=== PATIENT | female | born 1965 | race Caucasian/White ===

== ENCOUNTER 2024-09-06 02:41 | Emergency (ER) | payer SELFPAY ==
--- NOTE | ~2024-09-06 | CT_ITS ---
CLINICAL HISTORY: Hypertension, left arm involuntary movement R O --- Additional Notes or Special Ins tructions: Mass effect, stroke CT head without contrast Comparison: None Findings: Scattered subcortical and periventricular hypoattenuation, likely in keeping with chronic small vessel ischemic disease. Parenchymal volume loss with compensatory prominence of the ventricles and CSF spaces. No acute territorial infarction, intracranial hemorrhage, midline shift or hydrocephalus. Empty sella is demonstrated, nonspecific. Lacunar infarcts in the right basal ganglia. The visualized paranasal sinuses and mastoid air cells are normal. The orbits are unremarkable. There is no acute fracture. IMPRESSION: 1. No acute intracranial hemorrhage or territorial infarction. If clinical concern persists consider follow-up MRI. 2. Additional findings as described. This document has been electronically signed by: Luciano Ellis MD on 09/06/2024 05:25:48
[2024-09-06 02:51] VITALS: BP 233/140; PULSE 113; RESP 18; TEMP 36.7; O2SAT 98; BMI 29.1
[2024-09-06 03:55] VITALS: BP 195/88; PULSE 102; RESP 20; O2SAT 97
[2024-09-06 03:55] LABS: Basophils Percent Auto 0.4 % (0-2); Eosinophils Absolute Auto 0.1 X10*3/uL (0.0-0.4); Eosinophils Percent Auto 1.1 % (0-4); Hematocrit 39.2 % (37.0-47.0); Hemoglobin 14.2 g/dl (12.0-16.0); Imm Gran Abs Auto 0.04 X10*3/uL (0.00-0.03); Imm Gran Pct Auto 0.4 % (0.0-0.4); Lymphocytes Absolute Auto 2.8 X10*3/uL (1.2-4.9); Lymphocytes Percent Auto 27.7 % (20-40); MANUAL DIFF FLAG NO; Mean Corpuscular HGB Conc 36.2 g/dl (31.0-35.0); Mean Corpuscular Hemoglobin 29.3 pg (27.0-33.0); Mean Platelet Volume 9.9 fL (9.4-12.3); Monocytes Absolute Auto 0.6 X10*3/uL (0.1-1.2); Monocytes Percent Auto 6.2 % (2-11); Neutrophils Absolute Auto 6.6 x10*3/uL (2.0-8.3); Neutrophils Percent Auto 64.2 % (45-73); Platelet Count 248 X10*3/uL (160-400); Red Blood Count 4.84 X10*6/uL (4.20-5.50); Red Cell Distribution Width 12.3 % (11.0-16.0); White Blood Count 10.2 X10*3/uL (4.8-10.8)
--- NOTE | 2024-09-06 04:05 | ED.GENADULT ---
HPI - General Adult General Chief complaint: General Medical Stated complaint: gen med Time Seen by Provider: 09/06/24 04:04 Source: patient and family (Son, Cesar) Mode of arrival: ambulatory Limitations: language barrier (Israeli speaking only, [facility] team coordinator used) History of Present Illness ED Provider: Dr. Kirk Seymour HPI narrative: 58-year-old female with no known past medical history, has not seen a physician in many years who presents emergency department for evaluation of involuntary movement of her left hand and left foot. Patient states that over the past 2 days she has noted involuntary twitching of her left hand and left foot which occur separately. The twitching will last 10-20 seconds and she has anywhere from 5-10 episodes a day. She denied headache, nausea, vomiting, change in her vision. She has noted increased frequency and increased thirst. She denied numbness, weakness, difficulty thinking or talking. She denied fever, chills, chest pain, shortness of breath. Related Data Previous Rx's ?Medication ?Instructions ?Recorded lisinopril 10 mg tablet 10 mg PO DAILY 90 days #90 tabs 09/06/24 metformin 500 mg tablet 500 mg PO BID 90 days #180 tabs 09/06/24 Allergies Allergy/AdvReac Type Severity Reaction Status Date / Time No Known Allergies Allergy Verified 09/06/24 02:55 Review of Systems Review of Systems: Yes all other systems are reviewed and are negative [facility] Past Medical History [facility] Narrative: Social history: She denies tobacco, alcohol and drug use Social History Social History Alcohol intake: never Smoked in Last 30 Days: No Use of substances other than those prescribed or required for medical reasons: No Advance Directives: No Advance Directives Information Provided: Yes Patient : No Physical Exam ED Vital Signs: Vital Signs - 24 hr 09/06/24 02:51 09/06/24 03:55 09/06/24 05:25 Temperature 98.1 F Pulse Rate 113 H 102 H 99 Respiratory Rate 18 20 14 Blood Pressure 233/140 H 195/88 H 206/110 H Pulse Oximetry 98 97 97 Oxygen Delivery Method Room Air Room Air Room Air 09/06/24 06:12 Temperature 98.0 F Pulse Rate 98 Respiratory Rate 14 Blood Pressure 215/111 H Pulse Oximetry 97 Oxygen Delivery Method Room Air BMI result Body Mass Index 29.1 Vital signs revealed elevated blood pressures of 233/140 and 195/88 Exam: General: Awake, alert in no distress Head: Normocephalic, atraumatic EENT: PERRL, Lids normal, sclera normal, conjunctiva normal, nose normal , ears normal, throat without erythema or exudates Neck: Supple, no adenopathy Lung: breath sounds symmetric, no wheezing, rales or rhonchi Chest: symmetric movement, nontender Heart: regular rate and rhythm, normal S1, S2 no murmurs or rubs Abdomen: soft, non-tender, nondistended, normal bowel sounds Back: no vertebral tenderness, no CVAT Extremities: no deformities, moves all extremities symmetrically Neuro: General: Awake, alert, oriented, normal speech Cranial nerves: Cranial nerves intact Strength: moves all extremities symmetrically, strength 5/5 symmetrically, no tremors noted Cerebellar: Good ztqitl-vz-qjwc-to-finger, good heel to dyson, good rapid finger movement Psych: Pleasant, cooperative Medications Administered Discontinued Medications Generic Name Dose Route Start Last Admin Trade Name Freq PRN Reason Stop Dose Admin Sodium Chloride 1,000 mls @ 999 mls/hr 09/06/24 04:33 09/06/24 04:45 Ns IV 09/06/24 05:33 999 mls/hr .Q1H1M STA Administration Lisinopril 10 mg 09/06/24 04:33 09/06/24 04:41 Lisinopril 10 Mg Tablet PO 09/06/24 04:34 10 mg ONCE ONE Administration Protocol Metformin HCl 500 mg 09/06/24 04:33 09/06/24 04:41 Metformin Hcl 500 Mg Tablet PO 09/06/24 04:34 500 mg ONCE ONE Administration Medical Decision Making Medical Decision Making [facility] Narrative: 58-year-old female with no known past medical history, has not seen a physician in many years who presents emergency department for evaluation of involuntary movement of her left hand and left foot. Patient states that over the past 2 days she has noted involuntary twitching of her left hand and left foot which occur separately. The twitching will last 10-20 seconds and she has anywhere from 5-10 episodes a day. She denied headache, nausea, vomiting, change in her vision. She has noted increased frequency and increased thirst. She denied numbness, weakness, difficulty thinking or talking. She denied fever, chills, chest pain, shortness of breath. Patient's vital signs did reveal significant elevated blood pressures otherwise normal. Patient's physical examination was normal including a normal neurologic exam. Differential diagnosis: ?Includes but is not limited to seizure, stroke, intracranial bleed, intracranial mass with mass effect, essential hypertension, diabetes, urinary tract infection, electrolyte abnormalities, anemia Course: 04:40 My interpretation of the patient's laboratory evaluation is as follows: CBC was normal. Potassium was low 3.2. Glucose elevated 366. Given her elevated blood pressure I did order a CT scan of the brain. Patient was treated with lisinopril 10 mg orally, metformin 500 mg orally and normal saline x1 L 05:[address] head did not reveal any acute abnormality or Large vessel cerebral edema which is reassuring. The CT scan however was concerning revealed and revealed changes consistent with chronic small-vessel ischemic disease, cerebral atrophy, and right basal ganglion infarct suggested the patient may have had years of untreated hypertension and diabetes. I do not think that the patient has hypertensive crisis or urgency based on her presentation. I did discuss these findings with her and emphasize the need to get her hypertension and diabetes under control. patient was prescribed lisinopril 10 mg daily with a 90 day supply and 1 refill and metformin 500 mg q.12 hours with a 90 day supply and 1 refill. She was given numbers to our primary care referral line in to [facility] referral line as well. At this time I do not have a clear etiology for her twitching of her left upper extremity, I do not think that this represents a seizure disorder or an acute stroke. Admission/Observation Consideration of admission/observation: Escalation of care including admission/observation considered (Yes) Lab Data MDM Lab Attestation statement: I reviewed the patient's lab results. 09/06/24 03:51 09/06/24 03:51 Labs: Lab Results 09/06/24 09/06/24 09/06/24 Range/Units 03:51 06:03 06:05 WBC 10.2 (4.8-10.8) X10*3/uL RBC 4.84 (4.20-5.50) X10*6/uL Hgb 14.2 (12.0-16.0) g/dl Hct 39.2 (37.0-47.0) % MCV 81.0 (80.0-98.0) fL MCH 29.3 (27.0-33.0) pg MCHC 36.2 H (31.0-35.0) g/dl RDW 12.3 (11.0-16.0) % Plt Count 248 (160-400) X10*3/uL MPV 9.9 (9.4-12.3) fL Immature Gran % (Auto) 0.4 (0.0-0.4) % Neut % (Auto) 64.2 (45-73) % Lymph % (Auto) 27.7 (20-40) % [place] % (Auto) 6.2 (2-11) % Eos % (Auto) 1.1 (0-4) % Baso % (Auto) 0.4 (0-2) % Lymph # (Auto) 2.8 (1.2-4.9) X10*3/uL [place] # (Auto) 0.6 (0.1-1.2) X10*3/uL Eos # (Auto) 0.1 (0.0-0.4) X10*3/uL Baso # (Auto) 0.0 (0.0-0.2) X10*3/uL Abs Immat Gran (auto) 0.04 H (0.00-0.03) X10*3/uL Absolute Neuts (auto) 6.6 (2.0-8.3) x10*3/uL Absolute Nucleated RBC 0.000 (0.0-0.012) X10*3/uL Nucleated RBC % (auto) 0.0 (0.0-0.2) /100WBC Sodium 140 (135-145) mmol/L Potassium 3.2 L (3.3-5.1) mmol/L Chloride 103 (96-108) mmol/L Carbon Dioxide 25 (22-29) mmol/L Anion Gap 15 (12-20) BUN 13 (9-16) mg/dL Creatinine 0.74 (0.5-1.4) mg/dL Estim Creat Clear Calc 78.0 Estimated GFR > 60 POC Glucose 312 H (60-115) mg/dL Random Glucose 366 H* (60-115) mg/dL Calcium 10.3 H (8.4-10.2) mg/dL Magnesium 1.7 (1.6-2.6) mg/dL Total Bilirubin 0.5 (0.0-1.0) mg/dL AST 24 (5-31) U/L ALT 24 (0-31) U/L Alkaline Phosphatase 114 (39-117) U/L Total Protein 7.2 (6.5-8.0) g/dL Albumin 3.7 (3.5-5.0) g/dL Urine Color Yellow Urine Appearance Clear Urine pH 7.5 (5.0-9.0) Ur Specific [place] 1.010 (1.005-1.025) Urine Protein Negative (Neg-Trace) mg/dL Urine Glucose (UA) >=1000 H (Negative) mg/dL Urine Ketones Negative (Negative) mg/dL Urine Blood Negative (Negative) Urine Nitrite Negative (Negative) Ur Leukocyte Esterase Trace H (Negative) Urine RBC 0-2 (0-2) /HPF Urine WBC 0-5 (0-5) /HPF Ur Squamous Epith Cells 0-2 (0-2) /HPF Urine Bacteria None Seen (None Seen) Hyaline Casts 0-2 (0-2) /LPF Radiology Impression Discussion of test interpretation with radiology: I have reviewed the radiologist's reading. Radiologist Impression: CT head without contrast Comparison: None Findings: Scattered subcortical and periventricular hypoattenuation, likely in keeping with chronic small vessel ischemic disease. Parenchymal volume loss with compensatory prominence of the ventricles and CSF spaces. No acute territorial infarction, intracranial hemorrhage, midline shift or hydrocephalus. Empty sella is demonstrated, nonspecific. Lacunar infarcts in the right basal ganglia. The visualized paranasal sinuses and mastoid air cells are normal. The orbits are unremarkable. There is no acute fracture. IMPRESSION: 1. No acute intracranial hemorrhage or territorial infarction. If clinical concern persists consider follow-up MRI. 2. Additional findings as described. This document has been electronically signed by: Luciano Ellis MD on 09/06/2024 05:25:48 Independent Historian Clinical information obtained from an independent historian. History obtained from or confirmed by: Other (Son) Prescription Management I considered prescription management with: Other (Antihypertensive: Lisinopril, anti hyperglycemic: Metformin) Chronic Conditions Patient?s care impacted by: Diabetes and Hypertension Social Determinants Patient?s care significantly limited by Social Determinants of Health including: Other Social Determinant of Health ( lack of health insurance) Discharge Plan Discharge Clinical Impression: Essential hypertension, Diabetes mellitus, new onset Patient Disposition: Home, Self-Care Instructions: Type 2 Diabetes in Adults: New Diagnosis (DC), Diabetes and Nutrition (ED) Additional Instructions: Your blood glucose (sugar) was 366. Normal is 60-120 Take metformin 500 mg pills, 1 every 12 hours Your blood pressure was high at 195/88. Normal blood pressure is 120/60. Take lisinopril 10 mg pills, 1 pill once a day. You will need to follow-up with a primary care provider for re-evaluation within 2-4 weeks. You take your medications until you can see a PCP. High blood pressure instructions: Purchase a blood pressure machine so that you can check your blood pressure. You can either by an arm cuff or a wrist cuff machine The reason to check your blood pressure at home is to give your doctor an idea of what your blood pressure does when you are not in the doctor's office. Take your blood pressure in the mornings, Mondays , Wednesdays and Fridays and then write down these readings to discuss them with your doctor at your next visit. Do this for 2 weeks. I am starting you on lisinopril 10 mg once a day. When we start you on a blood pressure medications it will take anywhere from 2-6 week before these medications work to reduce your blood pressure. Follow-up with your doctor to discuss your blood pressure readings in 2 weeks Please return to the emergency department if your symptoms get worse or if you develop any new symptoms that are concerning to you. Try calling the following numbers to see if you can get a primary care provider to help you with your medical problems. [facility] PCP referral line ?for adult primary care and family practice medicine. [facility] CT head without contrast Comparison: None Findings: Scattered subcortical and periventricular hypoattenuation, likely in keeping with chronic small vessel ischemic disease. Parenchymal volume loss with compensatory prominence of the ventricles and CSF spaces. No acute territorial infarction, intracranial hemorrhage, midline shift or hydrocephalus. Empty sella is demonstrated, nonspecific. Lacunar infarcts in the right basal ganglia. The visualized paranasal sinuses and mastoid air cells are normal. The orbits are unremarkable. There is no acute fracture. IMPRESSION: 1. No acute intracranial hemorrhage or territorial infarction. If clinical concern persists consider follow-up MRI. 2. Additional findings as described. This document has been electronically signed by: Luciano Ellis MD on 09/06/2024 05:25:48 Prescriptions: New lisinopril 10 mg tablet 10 mg PO DAILY 90 Days Qty: 90 1RF metformin 500 mg tablet 500 mg PO BID 90 Days Qty: 180 1RF Stand Alone Forms: Work/School Release Interventions: ED Discharge Assessment Last Done: 09/06/24 06:12 Discharge Date/Time: 09/06/24 06:25 Print Language: Israeli
[2024-09-06 04:16] LABS: Alanine Aminotransferase 24 U/L (0-31); Albumin Level 3.7 g/dL (3.5-5.0); Anion Gap 15 (12-20); Aspartate Amino Transferase 24 U/L (5-31); Bilirubin Total 0.5 mg/dL (0.0-1.0); Blood Urea Nitrogen 13 mg/dL (9-16); Calcium 10.3 mg/dL (8.4-10.2); Carbon Dioxide 25 mmol/L (22-29); Chloride 103 mmol/L (96-108); Estimated Glomerular Filt Rate > 60; Glucose Random 366 mg/dL (60-115); Magnesium 1.7 mg/dL (1.6-2.6); Potassium 3.2 mmol/L (3.3-5.1); Sodium 140 mmol/L (135-145); Total Protein 7.2 g/dL (6.5-8.0)
[2024-09-06 04:23] LABS: Alkaline Phosphatase 114 U/L (39-117)
[2024-09-06] MEDS: metFORMIN HCl 500 MG TABLET PO (04:41)
[2024-09-06] MEDS: lisinopriL 10 MG TABLET PO (04:41)
[2024-09-06] MEDS: 0.9 % Sodium Chloride 1,000 ML 999 ML IV (04:45)
[2024-09-06 05:25] VITALS: BP 206/110; PULSE 99; RESP 14; O2SAT 97
[2024-09-06 06:10] LABS: Appearance Urine Clear; Color Urine Yellow; Glucose Urine UA >=1000 mg/dL (Negative); Leukocyte Esterase Urine Trace (Negative); Nitrite Urine Negative (Negative); PH 7.5 (5.0-9.0); UMIC TRIGGER UACC YES; Urine Blood Negative (Negative); Urine Ketones Negative (Negative); Urine Protein Negative (Neg-Trace)
[2024-09-06 06:12] VITALS: BP 215/111; PULSE 98; RESP 14; TEMP 36.7; O2SAT 97
[2024-09-06 06:15] LABS: Glucose, Whole Blood 312 mg/dL (60-115)
[2024-09-06 06:16] LABS: Bacteria Urine None Seen (None Seen); Hyaline Casts Urine 0-2 /LPF (0-2); RBC Urine 0-2 /HPF (0-2); Squamous Epithelial Cell Urine 0-2 /HPF (0-2); WBC Urine 0-5 /HPF (0-5)
== END 2024-09-06 06:25 | disposition home or self-care (01) ==
PROVIDERS: Emergency Provider Emergency Medicine Emergency Medical Services
DX: I10 Essential (primary) hypertension (principal); E11.9 Type 2 diabetes mellitus without complications
CPT/HCPCS: 36415; 70450; 80053; 81001; 82947; 83735; 85025; 99284

== ENCOUNTER → 2024-09-06 04:32 | Outpatient (BNV) | payer SELFPAY | PROVIDERS: Emergency Provider Emergency Medicine Emergency Medical Services; Visit Provider Radiology Diagnostic Radiology | DX: R25.9 Unspecified abnormal involuntary movements (principal); I10 Essential (primary) hypertension | CPT/HCPCS: 70450 ==

== ENCOUNTER 2024-11-21 08:54 | Outpatient (REF) | payer OTHER, SELFPAY ==
--- OUTSIDE RECORDS SUMMARY | 2024-11-21 09:06 | XMS_ITS | Clinical Summary ---
Author Organization [employer] Address [address] [place] [address] Care Team Providers Care Ticket Printer And Tagger Name Role Phone Name, Aaron FIGUEROA Primary Care Provider [phone] Alison Gary PharmD Unavailable [phone] Allergies No known active allergies Medications Blood Pressure kit Use once a day 1 kit 09/08/19 25 Active Blood Glucose Monitoring Suppl (FreeStyle Post Lite) w/Device kit Use to test blood sugar 2 times daily 1 kit 09/08/19 25 Active lisinopril-hyd roCHLOROthiazi de 20-12.5 MG tablet Take 1 tablet by mouth Once per day. 30 tablet 09/08/19 25 026 Active amLODIPine (Norvasc) 10 MG tablet Take 1 tablet (10 mg) by mouth Once per day. 30 tablet 09/22/19 25 026 Active metFORMIN (Glucophage) 500 MG tabletIndicati ons:Type 2 Diabetes Mellitus Take 1 tablet (500 mg) by mouth with breakfast and with evening meal. 180 tablet 3 10/29/19 25 026 Active Lancets miscIndication s:New onset type 2 diabetes mellitus (CMS/HCC) Use to test blood sugar 2 times daily 100 each 10/29/19 25 Active glucose blood (FREESTYLE LITE) test stripIndicatio ns:New onset type 2 diabetes mellitus (CMS/HCC) Use to test blood sugar 2 times daily 100 each 10/29/19 25 026 Active Alcohol Swabs 70 % padsIndication s:New onset type 2 diabetes mellitus (CMS/HCC) Use to test blood sugar 2 times daily 100 each 10/29/19 Active Multiple Vitamins-Script Worker als (CENTRUM ADULT PO) Take 1 tablet by mouth Once per day. Active metFORMIN (Glucophage) 500 MG tabletIndicati ons:Type 2 Diabetes Mellitus Take 1 tablet (500 mg) by mouth with breakfast and with evening meal. 09/08/19 025 Discontinued(Re order (will not trigger notification to Pharmacy)) FREESTYLE LITE test strip Use to test blood sugar 2 times daily 100 each 12 09/08/19 25 025 Discontinued(Re order (will not trigger notification to Pharmacy)) Lancets misc Use to test blood sugar 2 times daily 100 each 09/08/19 25 025 Discontinued(Re order (will not trigger notification to Pharmacy)) Alcohol Swabs 70 % pads Use to test blood sugar 2 times daily 100 each 09/08/19 25 025 Discontinued(Re order (will not trigger notification to Pharmacy)) Active Problems Problem Noted Date Diagnosed Date Primary hypertension 09/07/2024 Encounters Date Type Department Care Team Description 10/28/2024 Travel 10/26/2024 11:30 AM EDT Telemedicine [facility] [address] [place] [id number] Reina Krishnan RN Primary hypertension 10/26/2024 Telephone [facility] [address] [place] [phone] Aaron Villaseñor MD 10/26/2024 Travel 10/12/2024 11:00 AM EDT Telemedicine [facility] [address] [place] [phone] Reina Krishnan, AMANDA Primary hypertension 10/12/2024 Travel 09/21/2024 11:30 AM EDT Telemedicine [facility] [address] [place] [phone] Reina Krishnan, RN Primary hypertension 09/21/2024 Telephone [facility] [address] [place] [phone] Aaron Villaseñor MD 09/21/2024 Travel 09/21/2024 Telephone [facility] [address] [place] [phone] Aaron Villaseñor MD 09/15/2024 Telephone [facility] [address] [place] [address] Tiarra Arambula RN 09/14/2024 9:45 AM EDT Clinical Support [facility] [place] [address] Tiarra Arambula RN Primary hypertension (Primary Dx); New onset type 2 diabetes mellitus (CMS/HCC) 09/14/2024 Telephone [facility] [place] [place] [address] Tiarra Arambula RN 09/07/2024 2:40 PM EDT Office Visit [facility] [address] Aaron Villaseñor MD Primary hypertension (Primary Dx); New onset type 2 diabetes mellitus (CMS/HCC); Tremor of left hand 09/07/2024 Telephone [facility] [place] [place] [address] Aaron Villaseñor MD f/u appointment 09/07/2024 Travel from Last 3 Months Immunizations Immunization Administration Dates Next Due HepB-CpG 10/28/2024 Tdap 10/28/2024 Family History Medical History Relation Name Comments Diabetes Father Diabetes Mother Hypertension Mother Relation Name Status Comments Father Mother Social History Tobacco Use Types Packs/Day Years Used Date Smoking Tobacco: Never Smokeless Tobacco: Never Tobacco Cessation:Counseling Given: Not Answered Alcohol Use Standard Drinks/Week Comments Never 0 (1 standard drink = 0.6 oz pur e alcohol) Comments Unknown Sex and Gender Information Value Date Recorded Sex Assigned at Female 03/03/2022 10:31 AM EDT Legal Sex Female 10:31 AM EDT Gender Identity Female 03/03/2022 10:31 AM EDT Sexual Orientation Straight 03/03/2022 10 :31 AM EDT Last Filed Vital Signs Vital Sign Reading Time Taken Comments Blood Pressure 128/82 10/28/2024 11:04 AM EDT Pulse 101 09/07/2024 2:48 PM EDT Temperature 36.6 C (97.9 F) 09/07/2024 2:48 PM EDT Respiratory Rate 18 09/07/2024 2:48 PM EDT Oxygen Saturation 97% 09/07/2024 2:48 PM EDT Inhaled Oxygen Concentration - - Weight 72.1 kg (159 lb) 09/07/2024 2:48 PM EDT Height - - Body Mass Index - - Plan of Treatment Upcoming Encounters Date Type Department Care Team (Late st Contact Info) Description 11/25/2024 10:00 AM EDT Medication Management [facility] [address] [place] [address] Alison Gary, PharmD [address] [place] [address] 12/19/2024 2:45 PM EDT Office Visit [facility] [address] [place] [address] Name, MD Aaron [address] [place] [address] 02/02/2025 3:30 PM EDT Office Visit [facility] [address] [place] [address] Buck, Mary Alice, OD [address] [place] [address] Health Maintenance Due Date Last Done Comments CT Colonography 1966 Colonoscopy 1966 Colorectal Cancer Screening 1966 Depression Screening 1966 FIT DNA/Cologuard 1966 FIT 1966 FOBT 1966 HIV Screening 1966 Lipid Panel 1966 SDOH Screening 1966 Sigmoidoscopy 1966 Disability Screening 1966 Diabetes: Foot Exam 1976 Eye Exam 1976 Alcohol/Substance Use Screening 1978 Hepatitis C Screening 1984 Diabetes: Urine Protein Screening 1985 Pneumococcal Vaccine: 50+ Years (1 of 2 - PCV) 1985 Pap Smear 10/11/1987 Cervical Cancer Screening 1996 HPV/Cotest 1996 Mammogram 2006 Zoster Vaccines (1 of 2) 2016 COVID-19 Vaccine (2023-2 5 season) 2024 06/23/2021, 07/05/2020, 06/14/2020 Hepatitis B Vaccines (2 of 2 - CpG 2-dose series) 11/25/2024 10/28/2024 Influenza Vaccine (#1) 2025 Diabetes: Hemoglobin A1C 01/28/2025 10/28/2024 Tobacco Screening 10/28/2025 10/28/2024 DTaP/Tdap/Td Vaccines (2 - T d or Tdap) 10/28/2034 10/28/2024 RSV Patients and Patients Aged 60 years or older (1 - 1-dose 75+ series) 2041 HIB Vaccines Aged Out No longer eligi ble based on patient's age to complete this topic HPV Vaccines Aged Out No longer eligi ble based on patient's age to complete this topic Hepatitis A Vaccines Aged Out No long er eligible based on patient's age to complete this topic IPV Vaccines Aged Out No longer eligi ble based on patient's age to complete this topic Meningococcal B Vaccine Aged Out No l onger eligible based on patient's age to complete this topic Meningococcal Vaccine Aged Out No sommer lucio eligible based on patient's age to complete this topic RSV under 20 months Aged Out No longe r eligible based on patient's age to complete this topic Rotavirus Vaccines Aged Out No longer eligible based on patient's age to complete this topic Procedures Procedure Name Priority Date/Time Associated Diagnosis Comments POCT GLYCATED HEMOGLOBIN, TOTAL Routine 10/28/2024 11:38 AM EDT New onset type 2 diabetes mellitus (CMS/HCC) POCT GLUCOSE Routine 09/14/2024 11:03 AM EDT New onset type 2 diabetes mellitus (CMS/HCC) from Last 3 Months Results * (ABNORMAL) POCT HGB A1C (10/28/2024 11:38 AM EDT) Hemoglobin A1C 9.2(A) 4.0 - 5.7 % QC Media Lot # [id number] Blood 10/28/2024 11:3 8 AM EDT us Aaron Name POINT OF CARE TEST ENTER/EDIT OR DERABLES Final Result * POCT Glucose (09/14/2024 11:03 AM EDT) [facility] Signature Glucose Blood, POC 175 60 - 200 mg/dL QC Media Lot # [id number] Lot# Expiration Date Blood Capillary blood specimen / Unknown 09/14/2024 11:03 AM EDT Aaron Villaseñor MD POINT OF CARE TEST ENTER/EDIT OR DERABLES Final Result from Last 3 Months Insurance [facility] [employer] 2 Care Teams Ticket Printer And Tagger Relationship Specialty Start Date End Date Name, MD Aaron [address] [place] [address] PCP - General Internal Medicine 09/14/24 Alison Gary, PharmD [address] [place] [id number] Pharmacist Pharmacy 10/28/24
[2024-11-21 11:46] LABS: Alanine Aminotransferase 32 U/L (0-31); Albumin Level 4.5 g/dL (3.5-5.0); Alkaline Phosphatase 98 U/L (39-117); Anion Gap 12 (12-20); Aspartate Amino Transferase 21 U/L (5-31); Blood Urea Nitrogen 21 mg/dL (9-16); Calcium 11.0 mg/dL (8.4-10.2); Carbon Dioxide 27 mmol/L (22-29); Chloride 107 mmol/L (96-108); Cholesterol 199 mg/dL (<200); Estimated Glomerular Filt Rate > 60; HDL Cholesterol 31 mg/dL (>40); Potassium 3.5 mmol/L (3.3-5.1); Sodium 142 mmol/L (135-145); Total Protein 8.6 g/dL (6.5-8.0); Triglycerides 271 mg/dL (<150)
[2024-11-21 12:13] LABS: Microalbum/Creatinine Ratio Ur 107.4 ug/mg cr (<30)
[2024-11-21 12:18] LABS: Vitamin B12 > 2000 pg/mL (200-900)
[2024-11-21 12:36] LABS: Reflex LDLD? No
== END 2024-11-21 08:55 | disposition home or self-care (01) ==
LOC: HO.HHCL 08:54
PROVIDERS: PCP Internal Medicine Geriatric Medicine; Visit Provider Internal Medicine Geriatric Medicine
DX: E11.9 Type 2 diabetes mellitus without complications (principal); I10 Essential (primary) hypertension
CPT/HCPCS: 80048; 80061; 80076; 82043; 82570; 82607

== ENCOUNTER 2025-01-12 09:22 | Outpatient (REF) | payer OTHER, SELFPAY ==
--- OUTSIDE RECORDS SUMMARY | 2025-01-12 10:53 | XMS_ITS | Clinical Summary ---
Author Organization [employer] Address [address] [facility] [place] [address] Care Team Providers Care Nut Former Name Role Phone Name, Aaron FIGUEROA Primary Care Provider [phone] Alison Gary PharmD Unavailable [phone] Allergies No known active allergies Medications Blood Pressure kit Use once a day 1 kit 5 Active Blood Glucose Monitoring Suppl (FreeStyle [place] Lite) w/Device kit Use to test blood sugar 2 times daily 1 kit 5 Active amLODIPine (Norvasc) 10 MG tablet Take 1 tablet (10 mg) by mouth Once per day. 30 tablet 5 09/22/19 26 Active metFORMIN (Glucophage) 500 MG tabletIndications :Type 2 Diabetes Mellitus Take 1 tablet (500 mg) by mouth with breakfast and with evening meal. 180 tablet 3 5 10/29/19 26 Active Lancets miscIndications:N ew onset type 2 diabetes mellitus (CMS/HCC) Use to test blood sugar 2 times daily 100 each 5 Active glucose blood (FREESTYLE LITE) test stripIndications: New onset type 2 diabetes mellitus (CMS/HCC) Use to test blood sugar 2 times daily 100 each 5 10/27/19 26 Active Alcohol Swabs 70 % padsIndications:N ew onset type 2 diabetes mellitus (CMS/HCC) Use to test blood sugar 2 times daily 100 each 5 Active Multiple Vitamins-Minerals (CENTRUM ADULT PO) Take 1 tablet by mouth Once per day. Active atorvastatin (Lipitor) 40 MG tabletIndications :New onset type 2 diabetes mellitus (CMS/HCC),Primary hypertension Take 1 tablet (40 mg) by mouth Once per day. 90 tablet 1 5 Active lisinopril (Zestril) 30 MG tabletIndications :New onset type 2 diabetes mellitus (CMS/HCC),Primary hypertension Take 1 tablet (30 mg) by mouth Once per day. 90 tablet 1 5 Active aspirin 81 MG EC tabletIndications :New onset type 2 diabetes mellitus (CMS/HCC) Take 1 tablet (81 mg) by mouth Once per day. 90 tablet 3 5 11/26/19 26 Active empagliflozin (Jardiance) 10 MGIndications:Typ e 2 diabetes mellitus with hyperglycemia, without long-term current use of insulin (CMS/HCC) Take 1 tablet (10 mg) by mouth Once per day. 30 tablet 11 5 12/20/19 26 Active Active Problems Problem Noted Date Diagnosed Date Type 2 diabetes mellitus wit h hyperglycemia, without long-term current use of insulin 12/20/2024 Overview (12/20/2024): DM shoes and socks Primary hypertension 09/07/2024 Encounters Date Type Department Care Team Description 01/09/2025 Travel 12/27/[address] [facility] [address] [place] [phone] Aaron Villaseñor MD Letter Request/RMV Form (I called the patient regarding an application for a disabled parking placard, and a request for a letter for housing. She is requesting a first floor apartment, due to her medical conditions. I informed her that her PCP has denied both requests, because she does not have a health condition that would qualify her for either one. She verbalized understanding.) 12/19/2024 2:45 PM EDT Office Visit [facility] [address] [place] [address] Aaron Villaseñor MD PE (physical exam), routine (Primary Dx); Type 2 diabetes mellitus with hyperglycemia, without long-term current use of insulin (CMS/HCC); Primary hypertension; Encounter for screening mammogram for malignant neoplasm of breast; Screening for cervical cancer; Screen for colon cancer; Family history of Parkinson disease; Tremor of left hand 12/19/2024 Travel 12/18/2024 Travel 12/12/[address] [facility] [address] [place] [address] Aaron Villaseñor MD Pre-visit Planning (SDOH negative, Tobacco screening negative. ) 11/30/[address] [facility] [address] [place] [address] Aaron Villaseñor MD Letter Request (I called the patient, regarding her request for a letter for housing. She is requesting a two bedroom apartment on a first floor, or one with elevator access. I informed her, per the forms nurse, that a letter cannot be generated until she is seen by her PCP. She is scheduled on 12/19/24 at 2:45. She verbalized understanding.) 11/25/2024 Travel 11/21/2024 Results Follow-Up [facility] [address] [place] [address] Alison Gary PharmD Hepatic Function Panel, Basic Metabolic Panel, Lipid Panel with Reflex to Direct LDL, Additional followed-up results: 2 11/21/[address] [facility] [address] [place] [address] Aaron Villaseñor MD 10/28/2024 Travel 10/26/2024 11:30 AM EDT Telemedicine [facility] [address] [place] [address] Reina Krishnan, RN Primary hypertension 10/26/2024 Telephone [facility] [address] [place] [address] Aaron Villaseñor MD 10/26/2024 Travel 10/12/2024 11:00 AM EDT Telemedicine [facility] [address] [place] [address] Reina Krishnan, RN Primary hypertension 10/12/2024 Travel from Last 3 Months Immunizations Immunization Administration Dates Next Due HepB-CpG 11/25/2024,10/28/2024 Pneumococcal Conjugate PCV 20 11/25/2024 Tdap 10/28/2024 Family History Medical History Relation Name Comments Diabetes Father Diabetes Mother Hypertension Mother Relation Name Status Comments Father Mother Social History Tobacco Use Types Packs/Day Years Used Date Smoking Tobacco: Never Smokeless Tobacco: Never Tobacco Cessation:Counseling Given: Not Answered Alcohol Use Standard Drinks/Week Comments Never 0 (1 standard drink = 0.6 oz pur e alcohol) Housing Stability Answer Date Recorded What is your housing situation today? I have frankie sykes 12/12/[address] you li ve. Do you have problems with any of the following? None of the above 12/12/2024 Food Insecurity Answer Date Recorded Within the past 12 months, y ou worried that your food would run out before you got money to buy more: Never True 12/12/2024 Within the past 12 months,th e food you bought just didn't last and you didn't have enough money to get more: Never True 03/2025 Transportation Answer Date Recorded In the past 12 months, has l ack of transportation kept you from medical appts, meetings, work or from getting things needed for daily living? No 12/12/2024 Utilities Answer Date Recorded In the past 12 months, has t he electric, gas, oil or water company threatened to shut off services in your home? No 12/12/2024 Internet Access Answer Date Recorded Internet Access Q1 Yes 12/12/2024 Internet Access Q2 Not on file 12/12/2024 Comments Unknown Sex and Gender Information Value Date Recorded Sex Assigned at Female 03/03/2022 10:31 AM EDT Legal Sex Female 10:31 AM EDT Gender Identity Female 03/03/2022 10:31 AM EDT Sexual Orientation Straight 03/03/2022 10 :31 AM EDT Last Filed Vital Signs Vital Sign Reading Time Taken Comments Blood Pressure 160/87 12/19/2024 3:36 PM EDT Pulse 94 12/19/2024 2:59 PM EDT Temperature 36.6 C (97.8 F) 12/19/2024 2:59 PM EDT Respiratory Rate 18 12/19/2024 2:59 PM EDT Oxygen Saturation 98% 12/19/2024 2:59 PM EDT Inhaled Oxygen Concentration - - Weight 65.3 kg (144 lb) 12/19/2024 2:59 PM EDT Height 157.5 cm (5' 2 ) 12/19/2024 2:59 PM EDT Body Mass Index 26.34 12/19/2024 2:59 PM EDT Plan of Treatment Upcoming Encounters Date Type Department Care Team (Late st Contact Info) Description 01/16/2025 10:00 AM EDT Medication Management [facility] [address] [place] [address] Alison Gary, PharmD [address] [place] [address] 02/02/2025 3:30 PM EDT Office Visit [facility] [address] [place] [address] Buck, Mary Alice, OD [address] [place] [address] 03/13/2025 2:30 PM EST Office Visit [facility] [address] [place] [address] Name, MD Aaron [address] [place] [address] Health Maintenance Due Date Last Done Comments CT Colonography 1966 Colonoscopy 1966 Colorectal Cancer Screening 1966 Depression Screening 1966 FIT DNA/Cologuard 1966 FIT 1966 FOBT 1966 HIV Screening 1966 Sigmoidoscopy 1966 Eye Exam 1976 Alcohol/Substance Use Screening 1978 Hepatitis C Screening 1984 Pap Smear 10/11/1987 Cervical Cancer Screening 1996 HPV/Cotest 1996 Mammogram 2006 Zoster Vaccines (1 of 2) 2016 COVID-19 Vaccine ( season) 2025 06/23/2021, 07/05/2020, 06/14/2020 Influenza Vaccine (#1) 2025 Diabetes: Hemoglobin A1C 03/21/2025 12/19/2024, 10/03 Diabetes: Urine Protein Screening 11/21/2025 11/21/2024 Lipid Panel 11/21/2025 11/21/2024 SDOH Screening 12/12/2025 12/12/2024 Diabetes: Foot Exam 12/19/2025 12/19/2024, 12/19/2024, 12/19/2024, Additional history exists Tobacco Screening 12/19/2025 12/19/2024 Disability Screening 01/09/2026 01/09/2025 DTaP/Tdap/Td Vaccines (2 - Td or Tdap) 10/28/2034 10/28/2024 RSV Patients and Patients Aged 60 years or older (1 - 1-dose 75+ series) 2041 Hepatitis B Vaccines Completed 11/25/2024, 10/29/19 Pneumococcal Vaccine: 50+ Years Completed 11/25/2024 HIB Vaccines Aged Out No longer eligi [...] Diagnosis Comments POCT GLYCATED HEMOGLOBIN, TOTAL Routine 12/19/2024 3:01 PM EDT Type 2 diabetes mellitus with hyperglycemia, without long-term current use of insulin ([facility]) POCT GLUCOSE Routine 12/19/2024 3:00 PM EDT Type 2 diabetes mellitus with hyperglycemia, without long-term current use of insulin ([facility]) VITAMIN B12 Routine 11/21/2024 9:01 AM EDT ALBUMIN, RANDOM URINE W/CREATININE Routine 11/21/2024 9:01 AM EDT LIPID PANEL WITH REFLEX TO DIRECT LDL Routine 11/21/2024 9:01 AM EDT BASIC METABOLIC PANEL Routine 11/21/2024 9:01 AM EDT HEPATIC FUNCTION PANEL Routine 11/21/2024 9:01 AM EDT POCT GLYCATED HEMOGLOBIN, TOTAL Routine 10/28/2024 11:38 AM EDT New onset type 2 diabetes mellitus (CMS/HCC) from Last 3 Months Results * (ABNORMAL) POCT HGB A1C (12/19/2024 3:01 PM EDT) Only the most recent of2 resultswithin the time period is included. Hemoglobin A1C 7.3(A) 4.0 - 5.7 % QC Media Lot # [id number] Lot# Expiration Date Blood 12/19/2024 3:01 PM EDT us Aaron Villaseñor MD POINT OF CARE TEST ENTER/EDIT OR DERABLES Final Result * POCT Glucose (12/19/2024 3:00 PM EDT) Glucose Blood, POC 134 60 - 200 mg/dL QC Media Lot # [id number] Lot# Expiration Date Blood Capillary blood specimen / Unknown 12/19/2024 3:00 PM EDT us Aaron Villaseñor MD POINT OF CARE TEST ENTER/EDIT OR DERABLES Final Result * (ABNORMAL) Lipid Panel with Reflex to Direct LDL (11/21/2024 9:01 AM EDT) Triglycerides 271(H) <150 mg/dL [facility] Comment:Desirable Triglyceri de: less than 150 mg/dLBorderline High Triglyceride 150-199 mg/dLHigh Triglyceride: 200-499 mg/dLVery High Triglyceride: greater than or equal to 5OO mg/dL Cholesterol 199 <200 mg/dL [facility] Comment:Desirable Cholestero l: less than 200 mg/dLBorderline High Cholesterol: 200-239 mg/dLHigh Cholesterol: greater than 239 mg/dL LDL Cholesterol Calculated 114(H) <100 mg/dL [facility] Comment:Desirable LDL: less than 100 mg/dLNear Optimal/Above Optimal LDL: 110- 129 mg/dLBorderline High LDL: 130-159 mg/dLHigh LDL: 160-189 mg/dLVery High LDL: greater than or equal to 190 mg/dL HDL Cholesterol 31(L) >40 mg/dL [facility] Comment:Desirable HDL: great er than 40 mg/dL Note: This HDL assay may give artificially low results in patients with liver disease. 11/21/2024 9:01 AM EDT 11/21/2024 11:10 AM EDT us Aaron Villaseñor MD LAB BLOOD ORDERABLES Final Resul t Performing Organization Address [facility] de Phone Number [facility] [address] [place] [address] [phone] * (ABNORMAL) Albumin, Random Urine W/Creatinine (11/21/2024 9:01 AM EDT) Creatinine, Urine 116.34 mg/dL [facility] Microalbumin Urine 125.0 mg/L [facility] Microalbum Creatinine Ratio Ur 107.4(H) <30 ug/mg cr [facility] Comment:Albumin/Creatinine R atio Reference Ranges: Normal: < 30 ug/mg creatinine Microalbuminuria: 30 - 300 ug/mg creatinineClinical Albuminuria: > 300 ug/mg creatinine 11/21/2024 9:01 AM EDT 11/21/2024 11:26 AM EDT us Aaron Villaseñor MD LAB URINE ORDERABLES Final Resul t Performing Organization Address [facility] de Phone Number [facility] [address] [place] [address] [phone] * (ABNORMAL) Vitamin B12 (11/21/2024 9:01 AM EDT) Vitamin B12 >2,000(H) 200 - 900 pg/mL [facility] Comment:NORMAL 200-900 PG/M L INDETERMINATE 160-199 PG/ML DEFICIENT < 160 PG/ML 11/21/2024 9:01 AM EDT 11/21/2024 11:10 AM EDT us Aaron Villaseñor MD LAB BLOOD ORDERABLES Final Resul t Performing Organization Address [facility] de Phone Number [facility] [address] [place] [phone] * (ABNORMAL) Hepatic Function Panel (11/21/2024 9:01 AM EDT) Pathologist [facility] Bilirubin, Total 0.4 0.0 - 1.0 mg/dL [facility] Bilirubin, Direct 0.1 0.0 - 0.5 mg/dL [facility] Aspartate Amino Transferase 21 5 - 31 U/L [facility] Alanine Aminotransferase 32(H) 0 - 31 U/L [facility] Total Protein 8.6(H) 6.5 - 8.0 g/dL [facility] Albumin Level 4.5 3.5 - 5.0 g/dL [facility] Alkaline Phosphatase 98 39 - 117 U/L [facility] 11/21/2024 9:01 AM EDT 11/21/2024 11:10 AM EDT us Aaron Villaseñor MD LAB BLOOD ORDERABLES Final Resul t Performing Organization Address [facility] de Phone Number [facility] [address] [place] [phone] * (ABNORMAL) Basic Metabolic Panel (11/21/2024 9:01 AM EDT) Sodium 142 135 - 145 mmol/L [facility] Potassium 3.5 3.3 - 5.1 mmol/L [facility] Chloride 107 96 - 108 mmol/L [facility] Carbon Dioxide 27 22 - 29 mmol/L [facility] Anion Gap 12 12 - 20 [facility] Urea Nitrogen (BUN) 21(H) 9 - 16 mg/dL [facility] Creatinine, Serum 0.75 0.5 - 1.4 mg/dL [facility] Estimated Glomerular Filt Rate >60 [facility] Comment:Chronic Kidney Disea se: Estimated GFR < 60 mL/min/[id number] Kidney Disease: Estimated GFR < 15 mL/min/1.73m2 Glucose 164(H) 60 - 115 mg/dL [facility] Calcium 11.0(H) 8.4 - 10.2 mg/dL [facility] 11/21/2024 9:01 AM EDT 11/21/2024 11:10 AM EDT us Aaron Villaseñor MD LAB BLOOD ORDERABLES Final Resul t [facility] [address] [place] [phone] from Last 3 Months Insurance [facility] 2 Care Teams Nut Former Relationship Specialty Start Date End Date Name, MD Aaron [address] [place] [address] PCP - General Internal Medicine 09/14/24 Alison Gary PharmD [address] [place] [address] Pharmacist Pharmacy 10/28/24
--- OUTSIDE RECORDS SUMMARY | 2025-01-12 10:53 | XMS_ITS | Encounter Summary ---
Author Organization [employer] Address [address] [place] [address] Care Team Providers Care Sulfonator Operator Name Role Phone Name, Aaron FIGUEROA Primary Care Provider [phone] Alison Gary PharmD Unavailable [phone] Encounter Details Date Type Department Care Team (Latest Contact Info) Description 01/09/2025 Travel Social History Tobacco Use Types Packs/Day Years Used Date Smoking Tobacco: Never Smokeless Tobacco: Never Alcohol Use Standard Drinks/Week Comments Never 0 (1 standard drink = 0.6 oz pur e alcohol) Housing Stability Answer Date Recorded What is your housing situation today? I have frankiealbin sykes 12/12/[address] you [...] Orientation Straight 03/03/2022 10 :31 AM EDT documented as of this encounter Plan of Treatment Upcoming Encounters Date Type Department Care Team (Late st Contact Info) Description 01/16/2025 10:00 AM EDT Medication Management [facility] [address] [place] [address] Alison Gary, PharmJessee [address] [place] [address] 02/02/2025 3:30 PM EDT Office Visit [facility] [address] [place] [address] Buck, Mary Alice, OD [address] [place] [address] 03/13/2025 2:30 PM EST Office Visit [facility] [address] [place] [address] Name, MD Aaron [address] [place] [address] documented as of this encounter Visit Diagnoses Not on filedocumented in this encounter Care Teams Sulfonator Operator Relationship Specialty Start Date End Date Name, MD Aaron [address] [place] [phone] PCP - General Internal Medicine 09/14/24 Alison Gary, PharmD [address] [place] [phone] Pharmacist Pharmacy 10/28/24 documented as of this encounter
[2025-01-12 12:12] LABS: Anion Gap 13 (12-20); Blood Urea Nitrogen 17 mg/dL (9-16); Calcium 11.2 mg/dL (8.4-10.2); Carbon Dioxide 26 mmol/L (22-29); Chloride 107 mmol/L (96-108); Estimated Glomerular Filt Rate > 60; Potassium 4.1 mmol/L (3.3-5.1); Sodium 142 mmol/L (135-145)
== END 2025-01-12 09:23 | disposition home or self-care (01) ==
LOC: HO.HHCL 09:22
PROVIDERS: PCP Internal Medicine Geriatric Medicine; Visit Provider Internal Medicine Geriatric Medicine
DX: E11.9 Type 2 diabetes mellitus without complications (principal); I10 Essential (primary) hypertension
CPT/HCPCS: 36415; 80048

== ENCOUNTER 2025-02-07 11:47 | Outpatient (REF) | payer OTHER, SELFPAY ==
--- OUTSIDE RECORDS SUMMARY | 2025-02-02 15:30 | XMS_ITS | Encounter Summary ---
Author Organization [employer] Address [address] [place] [address] Care Team Providers Care Manager Merchandising Name Role Phone Name, Aaron FIGUEROA Primary Care Provider [phone] Alison Gary PharmD Unavailable [phone] Reason for Visit * Reason Comments Diabetic Eye Exam Encounter Details Date Type Department Care Team (Latest Contact Info) Description 02/02/2025 3:30 PM EDT Office Visit [facility] [address] [place] [address] Buck, Mary Alice, OD [address] [place] [address] 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) (Primary Dx); Age-related nuclear cataract of both eyes; Presbyopia Social History Tobacco Use Types Packs/Day Years [...] Care Team (Late st Contact Info) Description 02/27/2025 11:00 AM EDT Medication Management [facility] [address] [place] [phone] Alison Gary, PharmD [address] [place] [address] 03/13/2025 2:30 PM EST Office Visit [address] [address] Name, MD Aaron [address] [place] [address] 03/20/2025 11:00 AM EST Immunization [address] [address] 08/04/2025 1:00 PM EDT Office Visit [facility] [address] [place] [address] Buck, Mary Alice, OD [address] [place] [address] Pending Results Name Type Priority Associated Diagnoses Date /Time OCT, Retina - OU - Both Eyes Ophthalmology Routine 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) 02/02/2025 4:19 PM EDT documented as of this encounter Visit Diagnoses Diagnosis 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
--- OUTSIDE RECORDS SUMMARY | 2025-02-07 14:55 | XMS_ITS | Clinical Summary ---
Author Organization [employer] Address [address] [place] [address] Care Team Providers Care Patient Care Associate Name Role Phone Name, Aaron FIGUEROA Primary Care Provider [phone] Alison Gary PharmD Unavailable [phone] Allergies No known active allergies Medications Blood Pressure kit Use once a day 1 kit 5 Active Blood Glucose Monitoring Suppl (FreeStyle Schwertner Lite) w/Device kit Use to test blood sugar 2 times daily 1 kit 5 Active amLODIPine (Norvasc) 10 MG tablet Take 1 tablet (10 mg) by mouth Once per day. 30 tablet 5 09/22/19 26 Active metFORMIN (Glucophage) 500 MG tabletIndication s:Type 2 Diabetes Mellitus Take 1 tablet (500 mg) by mouth with breakfast and with evening meal. 180 tablet 3 5 10/29/19 26 Active Lancets miscIndications: New onset type 2 diabetes mellitus (HCC) Use to test blood sugar 2 times daily 100 each 5 Active glucose blood (FREESTYLE LITE) test stripIndications :New onset type 2 diabetes mellitus (HCC) Use to test blood sugar 2 times daily 100 each 5 10/27/19 26 Active Alcohol Swabs 70 % padsIndications: New onset type 2 diabetes mellitus (HCC) Use to test blood sugar 2 times daily 100 each 5 Active Multiple Vitamins-Mineral s (CENTRUM ADULT PO) Take 1 tablet by mouth Once per day. Active atorvastatin (Lipitor) 40 MG tabletIndication s:New onset type 2 diabetes mellitus (HCC),Primary hypertension Take 1 tablet (40 mg) by mouth Once per day. 90 tablet 1 5 Active lisinopril (Zestril) 30 MG tabletIndication s:New onset type 2 diabetes mellitus (HCC),Primary hypertension Take 1 tablet (30 mg) by mouth Once per day. 90 tablet 1 5 Active aspirin 81 MG EC tabletIndication s:New onset type 2 diabetes mellitus (HCC) Take 1 tablet (81 mg) by mouth Once per day. 90 tablet 3 5 11/26/19 26 Active empagliflozin (Jardiance) 25 MG Take 1 tablet (25 mg) by mouth Once per day. 90 tablet 3 5 01/17/20 26 Active empagliflozin (Jardiance) 10 MGIndications:Ty pe 2 diabetes mellitus with hyperglycemia, without long-term current use of insulin (HCC) Take 1 tablet (10 mg) by mouth Once per day. 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) (Primary Dx); Age-related nuclear cataract of both eyes; Presbyopia 02/02/2025 Travel 01/30/2025 Travel 01/16/2025 Telephone [facility] [address] [place] [address] Alison Gary PharmD Prior Authorization (Jardiance) 01/16/2025 Travel 01/09/2025 Travel 12/27/2024 Telephone [facility] [address] [place] [address] Name, MD Aaron Letter Request/RMV Form (I called the patient [...] understanding.) 12/19/2024 2:45 PM EDT Office Visit [address] [address] Aaron Villaseñor MD PE (physical exam), routine (Primary Dx); Type 2 diabetes mellitus with hyperglycemia, without long-term current use of insulin (CMS/HCC); Primary hypertension; Encounter for screening mammogram for malignant neoplasm of breast; Screening for cervical cancer; Screen for colon cancer; Family history of Parkinson disease; Tremor of left hand 12/19/2024 Travel 12/18/2024 Travel 12/12/2024 Patient Outreach [facility] [address] [place], [place] [phone] Aaron Villaseñor MD Pre-visit Planning (SDOH negative, Tobacco screening negative. ) 11/30/[address] [address] Aaron Villaseñor MD Letter Request (I called [...] verbalized understanding.) 11/25/2024 Travel 11/21/2024 Results Follow-Up [address] [address] Alison Gary PharmD Hepatic Function Panel, Basic Metabolic Panel, Lipid Panel with Reflex to Direct LDL, Additional followed-up results: 2 11/21/2024 Orders Only [address] [address] Aaron Villaseñor MD from Last 3 Months Immunizations Immunization Administration Dates Next Due HepB-CpG 11/25/2024,10/28/2024 Pneumococcal Conjugate PCV 20 11/25/2024 Tdap 10/28/2024 Zoster, Recombinant 01/16/2025 Family History Medical History Relation Name Comments [...] Sign Reading Time Taken Comments Blood Pressure 138/76 01/16/2025 10:13 AM EDT Pulse 94 12/19/2024 2:59 PM EDT [...] Description 02/27/2025 11:00 AM EDT Medication Management [facility] [address] [place] [phone] Alison Gary, AjitD [address] [place] [address] 03/13/2025 2:30 PM EST Office Visit [facility] [address] [place] [phone] Name, MD Aaron [address] [place] [address] 03/20/2025 11:00 AM EST Immunization [address] [address] 08/04/2025 1:00 PM EDT Office Visit [facility] [address] [place] [address] Buck, Mary Alice, OD [address] [place] [address] Health Maintenance Due Date Last Done Comments CT Colonography 1966 Colonoscopy 1966 Colorectal Cancer Screening 1966 Depression Screening 1966 FIT DNA/Cologuard 1966 FIT 1966 FOBT 1966 HIV Screening 1966 Sigmoidoscopy 1966 Alcohol/Substance Use Screening 1978 Hepatitis C Screening 1984 Pap Smear 10/11/1987 Cervical Cancer Screening 1996 HPV/Cotest 1996 Mammogram 2006 COVID-19 Vaccine ( season) 2025 06/23/2021, 07/05/2020, 06/14/2020 Influenza Vaccine (#1) 2025 Zoster Vaccines (2 of 2) 03/13/2025 01/16/2025 Diabetes: Hemoglobin A1C 03/21/2025 12/19/2024, 10/03 Diabetes: Urine Protein Screening 11/21/2025 11/21/2024 Lipid Panel 11/21/2025 11/21/2024 SDOH Screening 12/12/2025 12/12/2024 Diabetes: Foot Exam 12/19/2025 12/19/2024, 12/19/2024, 12/19/2024, Additional history exists Disability Screening 01/09/2026 01/09/2025 Eye Exam 02/02/2026 02/02/2025, 06/2024, 02/02/2025, Additional history exists Tobacco Screening 02/02/2026 02/02/2025 DTaP/Tdap/Td Vaccines (2 - Td or Tdap) [...] Procedure Name Priority Date/Time Associated Diagnosis Comments BASIC METABOLIC PANEL Routine 01/12/2025 9:28 AM EDT Type 2 diabetes mellitus with hyperglycemia, without long-term current use of insulin ([facility]) POCT GLYCATED HEMOGLOBIN, TOTAL Routine 12/19/2024 3:01 PM EDT Type 2 diabetes mellitus with hyperglycemia, without long-term current use of insulin ([facility]) POCT GLUCOSE Routine 12/19/2024 3:00 PM EDT Type 2 diabetes mellitus with hyperglycemia, without long-term current use of insulin ([facility]) VITAMIN B12 Routine 11/21/2024 9:01 AM EDT ALBUMIN, RANDOM URINE W/CREATININE Routine 11/21/2024 9:01 AM EDT LIPID PANEL WITH REFLEX TO DIRECT LDL Routine 11/21/2024 9:01 AM EDT BASIC METABOLIC PANEL Routine 11/21/2024 9:01 AM EDT HEPATIC FUNCTION PANEL Routine 11/21/2024 9:01 AM EDT from Last 3 Months Results * (ABNORMAL) Basic Metabolic Panel (01/12/2025 9:28 AM EDT) Only the most recent of2 resultswithin the time period is included. Sodium 142 135 - 145 mmol/L [facility] Potassium 4.1 3.3 - 5.1 mmol/L [facility] Chloride 107 96 - 108 mmol/L [facility] Carbon Dioxide 26 22 - 29 mmol/L [facility] Anion Gap 13 12 - 20 [facility] Urea Nitrogen (BUN) 17(H) 9 - 16 mg/dL [facility] Creatinine, Serum 0.69 0.5 - 1.4 mg/dL [facility] Estimated Glomerular Filt Rate >60 [facility] Comment:Chronic Kidney Disea se: Estimated GFR < 60 mL/min/1.89h1Pqbyck Kidney Disease: Estimated GFR < 15 mL/min/1.73m2 Glucose 121(H) 60 - 115 mg/dL [facility] Calcium 11.2(H) 8.4 - 10.2 mg/dL [facility] Blood Venous blood specimen / Unknown 01/12/2025 9:28 AM EDT 01/12/2025 11:41 AM EDT us Aaron Villaseñor MD LAB BLOOD ORDERABLES Final Resul t [facility] [address] [place] [phone] * (ABNORMAL) POCT HGB A1C (12/19/2024 3:01 PM EDT) Hemoglobin A1C 7.3(A) 4.0 - 5.7 % QC Media Lot # [id number] Lot# Expiration Date Blood 12/19/2024 3:01 PM EDT us Aaron Villaseñor MD POINT OF CARE TEST ENTER/EDIT OR DERABLES Final Result * POCT Glucose (12/19/2024 3:00 PM EDT) Glucose Blood, POC 134 60 - 200 mg/dL [employer] Lot # [id number] Lot# Expiration Date 72 Blood Capillary blood specimen / Unknown 12/19/2024 3:00 PM EDT us Aaron Villaseñor MD POINT OF CARE TEST ENTER/EDIT OR DERABLES Final Result * (ABNORMAL) Lipid Panel with Reflex to Direct LDL (11/21/2024 9:01 AM EDT) Triglycerides 271(H) <150 mg/dL [facility] Comment:Desirable Triglyceri de: less than 150 mg/dLBorderline High Triglyceride 150-199 mg/dLHigh Triglyceride: 200-499 mg/dLVery High Triglyceride: greater than or equal to 5OO mg/dL Cholesterol 199 <200 mg/dL [facility] Comment:Desirable Cholestero l: less than 200 mg/dLBorderline High Cholesterol: 200-239 mg/dLHigh Cholesterol: greater than 239 mg/dL LDL Cholesterol Calculated 114(H) <100 mg/dL [facility] Comment:Desirable LDL: less than 100 mg/dLNear Optimal/Above Optimal LDL: 110- 129 mg/dLBorderline High LDL: 130-159 mg/dLHigh LDL: 160-189 mg/dLVery High LDL: greater than or equal to 190 mg/dL HDL Cholesterol 31(L) >40 mg/dL [facility] Comment:Desirable HDL: great er than 40 mg/dL Note: This HDL assay may give artificially low results in patients with liver disease. 11/21/2024 9:01 AM EDT 11/21/2024 11:10 AM EDT us Aaron Villaseñor MD LAB BLOOD ORDERABLES Final Resul t Performing Organization Address [facility] Co de Phone Number [facility] [address] [place] [phone] * (ABNORMAL) Albumin, Random Urine W/Creatinine (11/21/2024 9:01 AM EDT) Creatinine, Urine 116.34 mg/dL [facility] Microalbumin Urine 125.0 mg/L [facility] Microalbum Creatinine Ratio Ur 107.4(H) <30 ug/mg cr [facility] Comment:Albumin/Creatinine R atio Reference Ranges: Normal: < 30 ug/mg creatinine Microalbuminuria: 30 - 300 ug/mg creatinineClinical Albuminuria: > 300 ug/mg creatinine 11/21/2024 9:01 AM EDT 11/21/2024 11:26 AM EDT us Aaron Villaseñor MD LAB URINE ORDERABLES Final Resul t Performing Organization Address [facility]/ZIP Co de Phone Number [facility] [address] [place] [phone] * (ABNORMAL) Vitamin B12 (11/21/2024 9:01 AM EDT) Vitamin B12 >2,000(H) 200 - 900 pg/mL [facility] Comment:NORMAL 200-900 PG/ML INDETERMINATE 160-199 PG/ML DEFICIENT < 160 PG/ML 11/21/2024 9:01 AM EDT 11/21/2024 11:10 AM EDT Aaron Villaseñor MD LAB BLOOD ORDERABLES Final Resul t Performing Organization Address [facility] Co de Phone Number [facility] [address] [place] [address] [phone] * (ABNORMAL) Hepatic Function Panel (11/21/2024 9:01 AM EDT) Bilirubin, Total 0.4 0.0 - 1.0 mg/dL [facility] Bilirubin, Direct 0.1 0.0 - 0.5 mg/dL [facility] Aspartate Amino Transferase 21 5 - 31 U/L [facility] Alanine Aminotransferase 32(H) 0 - 31 U/L [facility] Total Protein 8.6(H) 6.5 - 8.0 g/dL [facility] Albumin Level 4.5 3.5 - 5.0 g/dL [facility] Alkaline Phosphatase 98 39 - 117 U/L [facility] 11/21/2024 9:01 AM EDT 11/21/2024 11:10 AM EDT Aaron Villaseñor MD LAB BLOOD ORDERABLES Final Resul t Performing Organization Address [facility] Co de Phone Number [facility] [address] [place] [phone] from Last 3 Months Insurance [id number] 2 Care Teams Patient Care Associate Relationship Specialty Start Date End Date Name, MD Aaron [address] [place] [address] PCP - General Internal Medicine 09/14/24 Alison Gary PharmD [address] [place] [address] Pharmacist Pharmacy 10/28/24
--- OUTSIDE RECORDS SUMMARY | 2025-02-07 14:55 | XMS_ITS | Encounter Summary ---
Author Organization [employer] Address [address] [place] [address] Care Team Providers Care Seal Delivery Vehicle Team Technician Name Role Phone Name, Aaron FIGUEROA Primary Care Provider [phone] Alison Gary PharmD Unavailable [phone] Encounter Details Date Type Department Care Team (Latest Contact Info) Description 02/02/2025 Travel Social History Tobacco Use Types Packs/Day [...] Description 02/27/2025 11:00 AM EDT Medication Management [facility] [address] [place] [phone] Alison Gary PharmD [address] [place] [address] 03/13/2025 2:30 PM EST Office Visit [address] [address] Aaron Villaseñor MD [address] [place] [address] 03/20/2025 11:00 AM EST Immunization [address] [address] 08/04/2025 1:00 PM EDT Office Visit [facility] [address] [place] [address] Buck, Mary Alice, OD [address] [place] [address] documented as of this encounter Visit Diagnoses Not on filedocumented in this encounter Care Teams Seal Delivery Vehicle Team Technician Relationship Specialty Start Date End Date Aaron Villaseñor MD [address] [place] [phone] PCP - General Internal Medicine 09/14/24 Alison Gary PharmD [address] [place] [phone] Pharmacist Pharmacy 10/28/24 documented as of this encounter
== END 2025-02-07 11:48 | disposition home or self-care (01) ==
LOC: HO.MAMMO 11:47
PROVIDERS: PCP Internal Medicine Geriatric Medicine; Visit Provider Internal Medicine Geriatric Medicine
DX: Z12.31 Encounter for screening mammogram for malignant neoplasm of breast (principal)
CPT/HCPCS: 77063; 77067

== ENCOUNTER → 2025-02-07 12:00 | Outpatient (BNV) | payer OTHER, SELFPAY | PROVIDERS: PCP Internal Medicine Geriatric Medicine; Visit Provider Internal Medicine | DX: Z12.31 Encounter for screening mammogram for malignant neoplasm of breast (principal) | CPT/HCPCS: 77063; 77067 ==

== ENCOUNTER 2025-03-10 11:43 | Outpatient (REF) | payer OTHER, SELFPAY ==
[2025-03-10 14:09] LABS: Alanine Aminotransferase 31 U/L (0-31); Albumin Level 4.4 g/dL (3.5-5.0); Alkaline Phosphatase 83 U/L (39-117); Anion Gap 10 (12-20); Aspartate Amino Transferase 27 U/L (5-31); Blood Urea Nitrogen 16 mg/dL (9-16); Calcium 10.9 mg/dL (8.4-10.2); Carbon Dioxide 28 mmol/L (22-29); Chloride 110 mmol/L (96-108); Cholesterol 117 mg/dL (<200); Estimated Glomerular Filt Rate > 60; HDL Cholesterol 37 mg/dL (>40); Potassium 4.0 mmol/L (3.3-5.1); Sodium 144 mmol/L (135-145); Total Protein 7.9 g/dL (6.5-8.0); Triglycerides 71 mg/dL (<150)
--- OUTSIDE RECORDS SUMMARY | 2025-03-10 14:11 | XMS_ITS | Encounter Summary ---
Author Organization [employer] Address [address] [place] [address] Care Team Providers Care Pineapple Plantation Manager Name Role Phone Name, Aaron FIGUEROA Primary Care Provider [phone] Alison Gary PharmD Unavailable [phone] Reason for Visit * Reason Onset Date Comments chart prep 03/10/2025 Encounter Details Date Type Department Care Team ([facility] Contact Info) Description 03/10/2025 Telephone [facility] [address] [place] [address] Solomon Contreras MA chart prep Social History Tobacco Use Types Packs/Day Years [...] AM EDT documented as of this encounter Miscellaneous Notes * Telephone Encounter - Solomon Contreras MA - 03/10/2025 1:38 PM EST Chart Prep Labs: not done Images: done Referrals: complete-neurology 03/28/25 1:15 PM 04/19/25 2:00 PM [facility] Vaccines due: Covid and Zoster Screenings: colonoscopy and pap smear Overdue care gaps: A1c, Glucose, SBIRT, PHQ-9, and MATILDA-7 documented in this encounter Plan of Treatment Upcoming Encounters Date Type Department Care Team (Late st Contact Info) Description 03/13/2025 2:30 PM EST Office Visit [facility] [address] [place] [phone] Name, MD Aaron [address] [place] [address] 03/13/2025 3:00 PM EST Immunization [address] [address] 04/04/2025 11:00 AM EST Medication Management [address] [address] Alison Gary, PharmD [address] [place] [address] 08/04/2025 1:00 PM EDT Office Visit [facility] [address] [place] [phone] Mary Alice Jane, OD [address] [place] [address] documented as of this encounter Visit Diagnoses Not on filedocumented in this encounter Care Teams Pineapple Plantation Manager Relationship Specialty Start Date End Date Name, MD Aaron [address] [place] [phone] PCP - General Internal Medicine 09/14/24 Alison Gary PharmD [address] [place] [address] Pharmacist Pharmacy 10/28/24 documented as of this encounter
--- OUTSIDE RECORDS SUMMARY | 2025-03-10 14:11 | XMS_ITS | Clinical Summary ---
Author Organization [employer] Address [address] [place] [address] Care Team Providers Care Machine Egg Washer Name Role Phone Name, Aaron FIGUERAO Primary Care Provider [phone] Alison Gary PharmD Unavailable [phone] Allergies No known active allergies Medications Blood Pressure kit Use once a day 1 kit 09/08/19 25 Active Blood Glucose Monitoring Suppl (FreeStyle [place] Lite) w/Device kit Use to test blood sugar 2 times daily 1 kit 09/08/19 25 Active amLODIPine (Norvasc) 10 MG tablet Take 1 tablet (10 mg) by mouth Once per day. 30 tablet 09/22/19 25 026 Active metFORMIN (Glucophage) 500 MG tabletIndicatio ns:Type 2 Diabetes Mellitus Take 1 tablet (500 mg) by mouth with breakfast and with evening meal. 180 tablet 3 10/29/19 25 026 Active Lancets miscIndications :New onset type 2 diabetes mellitus (HCC) Use to test blood sugar 2 times daily 100 each 10/29/19 25 Active glucose blood (FREESTYLE LITE) test stripIndication s:New onset type 2 diabetes mellitus (HCC) Use to test blood sugar 2 times daily 100 each 10/29/19 25 026 Active Alcohol Swabs 70 % padsIndications :New onset type 2 diabetes mellitus (HCC) Use to test blood sugar 2 times daily 100 each 10/29/19 25 Active Multiple Vitamins-Minera ls (CENTRUM ADULT PO) Take 1 tablet by mouth Once per day. Active atorvastatin (Lipitor) 40 MG tabletIndicatio ns:New onset type 2 diabetes mellitus (HCC),Primary hypertension Take 1 tablet (40 mg) by mouth Once per day. 90 tablet 1 11/26/19 25 Active aspirin 81 MG EC tabletIndicatio ns:New onset type 2 diabetes mellitus (HCC) Take 1 tablet (81 mg) by mouth Once per day. 90 tablet 3 11/26/19 25 026 Active empagliflozin (Jardiance) 25 MG Take 1 tablet (25 mg) by mouth Once per day. 90 tablet 3 01/17/20 25 026 Active lisinopril (Zestril) 40 MG tabletIndicatio ns:Primary hypertension,Ty pe 2 diabetes mellitus with hyperglycemia, without long-term current use of insulin (HCC) Take 1 tablet (40 mg) by mouth Once per day. 90 tablet 1 02/28/20 25 Active lisinopril (Zestril) 30 MG tabletIndicatio ns:New onset type 2 diabetes mellitus (HCC),Primary hypertension Take 1 tablet (30 mg) by mouth Once per day. 90 tablet 1 11/26/19 25 025 Discontinued(Re order (will not trigger notification to Pharmacy)) Active Problems Problem Noted Date Diagnosed Date Type 2 diabetes mellitus wit h hyperglycemia, without long-term current use of insulin 12/20/2024 Overview (12/20/2024): DM shoes and socks Primary hypertension 09/07/2024 Encounters Date Type Department Care Team Description 03/10/2025 Telephone [facility] [address] [place] [address] Solomon Contreras MA chart prep 03/06/2025 Travel 02/27/2025 Travel 02/20/2025 Travel 02/02/2025 3:30 PM EDT Office Visit [facility] [address] [place], [place] [phone] Buck, Mary Alice, OD 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) (Primary Dx); Combined forms of age-related cataract of both eyes; Presbyopia 02/02/2025 Travel 01/30/2025 Travel 01/16/2025 Telephone [facility] [address] [place] [address] Alison Gary, Joshua Prior Authorization (Jardiance) 01/16/2025 Travel 01/09/2025 Travel 12/27/2024 Telephone [facility] [address] [place] [address] Aaron Villaseñor MD Letter Request/RMV Form (I [...] understanding.) 12/19/2024 2:45 PM EDT Office Visit [facility] [address] [place] [address] Aaron Villaseñor MD PE (physical exam), routine (Primary Dx); Type 2 diabetes mellitus with hyperglycemia, without long-term current use of insulin ([facility]); Primary hypertension; Encounter for screening mammogram for malignant neoplasm of breast; Screening for cervical cancer; Screen for colon cancer; Family history of Parkinson disease; Tremor of left hand 12/19/2024 Travel 12/18/2024 Travel 12/12/2024 Patient Outreach [facility] [address] [place] [address] Aaron Villaseñor MD Pre-visit Planning (SDOH negative, Tobacco screening negative. ) from Last 3 Months Immunizations Immunization Administration Dates Next Due HepB-CpG 11/25/2024,10/28/2024 Influenza, seasonal, injectable, preservative fr ee 02/27/2025 Pneumococcal Conjugate PCV 20 11/25/2024 Tdap 10/28/2024 [...] Sign Reading Time Taken Comments Blood Pressure 140/68 02/27/2025 11:17 AM EDT Pulse 94 12/19/2024 2:59 PM [...] Description 03/13/2025 2:30 PM EST Office Visit [facility] [address] [place] [phone] Name, MD Aaron [address] [place] [address] 03/13/2025 3:00 PM EST Immunization [facility] [address] [place] [address] 04/04/2025 11:00 AM EST Medication Management [facility] [address] [place] [address] Alison Gary, PharmD [address] [place] [address] 08/04/2025 1:00 PM EDT Office Visit [facility] [address] [place] [address] Buck, Mary Alice, OD [address] [place] [address] Health Maintenance Due Date Last Done Comments CT Colonography 1966 Colonoscopy 1966 Colorectal Cancer Screening 1966 Depression Screening 1966 FIT DNA/Cologuard 1966 FIT 1966 FOBT 1966 HIV Screening 1966 Sigmoidoscopy 1966 Alcohol/Substance Use Screening 1978 Hepatitis C Screening 1984 Pap Smear 10/11/1987 Cervical Cancer Screening 1996 HPV/Cotest 1996 COVID-19 Vaccine ( season) 2025 06/23/2021, 07/05/2020, 06/14/2020 Zoster Vaccines (2 of 2) 03/13/2025 01/16/2025 Diabetes: Hemoglobin A1C 03/21/2025 12/19/2024, 06/2 11/2024 Diabetes: Urine Protein Screening 11/21/2025 11/21/2024 Lipid Panel 11/21/2025 03/10/2025, 11/21/2024 SDOH Screening 12/12/2025 12/12/2024 Diabetes: Foot Exam 12/19/2025 12/19/2024, 12/19/2024, 12/19/2024, Additional history exists Eye Exam 02/02/2026 02/02/2025, 06/2024, 02/02/2025, Additional history exists Tobacco Screening 02/08/2026 02/08/2025 Disability Screening 03/06/2026 03/06/2025 Mammogram 02/07/2027 02/07/2025 DTaP/Tdap/Td Vaccines (2 - Td or Tdap) 10/28/2034 10/28/2024 RSV Patients and Patients Aged 60 years or older (1 - 1-dose 75+ series) 2041 Hepatitis B Vaccines Completed 11/25/2024, 10/29/19 Pneumococcal Vaccine: 50+ Years Completed 11/25/2024 Influenza Vaccine Completed 02/27/2025 HIB Vaccines Aged Out No longer eligi [...] Procedure Name Priority Date/Time Associated Diagnosis Comments LIPID PANEL, STANDARD Routine 03/10/2025 11:49 AM EST BASIC METABOLIC PANEL Routine 03/10/2025 11:49 AM EST HEPATIC FUNCTION PANEL Routine 03/10/2025 11:49 AM EST BI MAMMOGRAM SCREENING TOMOSYNTHESIS BILATERAL Routine 02/07/2025 12:09 PM EDT Encounter for screening mammogram for malignant neoplasm of breast OCT, RETINA - OU - BOTH EYES Routine 02/02/2025 3:30 PM EDT 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) BASIC METABOLIC PANEL Routine 01/12/2025 9:28 AM EDT Type 2 diabetes mellitus with hyperglycemia, without long-term current use of insulin ([facility]) POCT GLYCATED HEMOGLOBIN, TOTAL Routine 12/19/2024 3:01 PM EDT Type 2 diabetes mellitus with hyperglycemia, without long-term current use of insulin ([facility]) POCT GLUCOSE Routine 12/19/2024 3:00 PM EDT Type 2 diabetes mellitus with hyperglycemia, without long-term current use of insulin ([facility]) ALBUMIN, RANDOM URINE W/CREATININE Routine 11/21/2024 9:01 AM EDT from Last 3 Months or Most Recently Relevant to Health Maintenance Results * Hepatic Function Panel (03/10/2025 11:49 AM EST) Bilirubin, Total 0.4 0.0 - 1.0 mg/dL [facility] Bilirubin, Direct 0.2 0.0 - 0.5 mg/dL [facility] Aspartate Amino Transferase 27 5 - 31 U/L [facility] Alanine Aminotransferase 31 0 - 31 U/L [facility] Total Protein 7.9 6.5 - 8.0 g/dL [facility] Albumin Level 4.4 3.5 - 5.0 g/dL [facility] Alkaline Phosphatase 83 39 - 117 U/L [facility] 03/10/2025 11:4 9 AM EST 03/10/2025 1:00 PM EST us Aaron Villaseñor MD LAB BLOOD ORDERABLES Final Resul t [facility] [address] [place] [phone] * (ABNORMAL) Lipid Panel, Standard (03/10/2025 11:49 AM EST) Triglycerides 71 <150 mg/dL [facility] Comment:Desirable Triglyceri de: less than 150 mg/dLBorderline High Triglyceride 150-199 mg/dLHigh Triglyceride: 200-499 mg/dLVery High Triglyceride: greater than or equal to 5OO mg/dL Cholesterol 117 <200 mg/dL [facility] Comment:Desirable Cholestero l: less than 200 mg/dLBorderline High Cholesterol: 200-239 mg/dLHigh Cholesterol: greater than 239 mg/dL LDL Cholesterol Calculated 66 <100 mg/dL [facility] Comment:Desirable LDL: less than 100 mg/dLNear Optimal/Above Optimal LDL: 110- 129 mg/dLBorderline High LDL: 130-159 mg/dLHigh LDL: 160-189 mg/dLVery High LDL: greater than or equal to 190 mg/dL HDL Cholesterol 37(L) >40 mg/dL [facility] Comment:Desirable HDL: great er than 40 mg/dL Note: This HDL assay may give artificially low results in patients with liver disease. 03/10/2025 11:4 9 AM EST 03/10/2025 1:00 PM EST us Aaron Name MD LAB BLOOD ORDERABLES Final Resul t [facility] [address] [place] [address] [phone] * (ABNORMAL) Basic Metabolic Panel (03/10/2025 11:49 AM EST) Only the most recent of2 resultswithin the time period is included. Sodium 144 135 - 145 mmol/L [facility] Potassium 4.0 3.3 - 5.1 mmol/L [facility] Chloride 110(H) 96 - 108 mmol/L [facility] Carbon Dioxide 28 22 - 29 mmol/L [facility] Anion Gap 10(L) 12 - 20 [facility] Urea Nitrogen (BUN) 16 9 - 16 mg/dL [facility] Creatinine, Serum 0.68 0.5 - 1.4 mg/dL [facility] Estimated Glomerular Filt Rate >60 [facility] Comment:Chronic Kidney Disea se: Estimated GFR < 60 mL/min/1.75y6Mlqdfi Kidney Disease: Estimated GFR < 15 mL/min/1.73m2 Glucose 99 60 - 115 mg/dL [facility] Calcium 10.9(H) 8.4 - 10.2 mg/dL [facility] 03/10/2025 11:4 9 AM EST 03/10/2025 1:00 PM EST us Aaron Villaseñor MD LAB BLOOD ORDERABLES Final Resul t [facility] [address] [place] [address] [phone] * BI Mammogram Screening Tomosynthesis Bilateral (02/07/2025 12:09 PM EDT) Anatomical Region Laterality Modality Breast Bilateral Mammography 02/07/2025 12:0 9 PM EDT Narrative 02/14/2025 10:00 AM EDT [facility] [address] [place] [address] Mammography Report Signed with Addenda Patient: Alina Pak MR#: [id number] : 1965 Acct:[id number] Age/Sex: 59 / F ADM Date: 02/07/25 Loc: HO.MAMMO Attending Dr: Aaron Villaseñor MD Ordering Physician: Aaron Villaseñor MD Results: 0Incomplet e- Need Additional Imaging Evaluation Date of Service: 02/07/25 Follow Up: Additional Imagi ng Procedure(s): MM tomosynthesis screening BI Accession Number(s): [id number] cc: Aaron Villaseñor MD Reason For Exam: screening for breast cancer ADDENDUM ADDENDUM #1 ADDENDUM: RECOMMENDATION: 1. Additional views of the bilateral breasts. 2. Targeted ultrasound if warranted after review of the additional views. 3. Radiology department staff will contact the patient for additional imaging. Additional Imaging required OVERALL ASSESSMENT: Category 0: Incomplete - Need additional Imaging Evaluation RECOMMENDATION: Additional Imaging required Electronically signed by: Bee Henderson DO 02/16/2025 09:11 AM EDT RP Addendum Dictated By: Bee Henderson DO Addendum Signed By: <Electronically signed by Bee Henderson DO in OV> 02/16/25910 Addendum Cosigned By: DD/ /25/1208 TD/TT: 02/07/2511/25/1222 EXAMINATION: MM SCREENING DIGITAL BREAST TOMOSYNTHESIS, BILATERAL CLINICAL INFORMATION: Screening. Asymptomatic. COMPARISON: Mammography: Baseline. TECHNIQUE: Digital breast mammography with tomosynthesis is performed in both the craniocaudal and mediolateral oblique views along with computer-aided detection (CAD). FINDINGS: There are scattered areas of fibroglandular density. Left: Line asymmetry lateral breast middle depth on CC view. No suspicious calcifications or other abnormal findings. Right: Calcifications upper central breast middle to posterior depth question vascular. Asymmetry superior breast underlying a skin fold on MLO view. No suspicious other abnormal findings. MM/MM tomosynthesis screening BI IMPRESSION: Additional imaging is recommended ASSESSMENT: BI-RADS Category 0: Incomplete - Need additional Imaging Evaluation RECOMMENDATION: 1. Additional views of the right breast. 2. Targeted ultrasound if warranted after review of the additional views. 3. Radiology department staff will contact the patient for additional imaging. Additional Imaging required Electronically signed by: Bee Henderson DO 02/14/2025 09:57 AM EDT Dictated By: Bee Henderson DO Signed By: <Electronically signed by Bee Henderson DO in OV> 02/14/25 0957 DD/ 08 TD/TT: 02/07/251222 Satellite Dish Repairer: Procedure Note Donotuseinterpreter, Image - 02/16/2025 [facility] [address] [place], [place] [address] Mammography Report Signed with Michelle Patient: Alina PakMR#: [id number] : 1965Acct:[id number] Age/Sex: 59 / FADM Date: 02/07/25 Loc: HO.MAMMO Attending Dr: Aaron Villaseñor MD Ordering Physician: Name,Aaron VANesults: 0Incomplet e- Need Additional Imaging Evaluation Date of Service: 02/07/25Follow Up: Additional Imagi ng Procedure(s): MM tomosynthesis screening BI Accession Number(s): [id number] cc: Name,Aaron FIGUEROA Reason For Exam: screening for breast cancer ADDENDUM ADDENDUM #1 ADDENDUM: RECOMMENDATION: 1. Additional views of the bilateral breasts. 2. Targeted ultrasound if warranted after review of the additional views. 3. Radiology department staff will contact the patient for additional imaging. Additional Imaging required OVERALL ASSESSMENT: Category 0: Incomplete - Need additional Imaging Evaluation RECOMMENDATION: Additional Imaging required Electronically signed by: Bee Henderson DO 02/16/2025 09:11 AM EDT Addendum Dictated By: Bee Henderson DO Addendum Signed By: <Electronically signed by DO Anabel in OV> 02/16/25 09 Addendum Cosigned By: DD/ /25/1208 TD/TT: 02/07/2511/25/1222 EXAMINATION: MM SCREENING DIGITAL BREAST TOMOSYNTHESIS, BILATERAL CLINICAL INFORMATION: Screening. Asymptomatic. COMPARISON: Mammography: Baseline. TECHNIQUE: Digital breast mammography with tomosynthesis is performed in both the craniocaudal and mediolateral oblique views along with computer-aided detection (CAD). FINDINGS: There are scattered areas of fibroglandular density. Left: Line asymmetry lateral breast middle depth on CC view. No suspicious calcifications or other abnormal findings. Right: Calcifications upper central breast middle to posterior depth question vascular. Asymmetry superior breast underlying a skin fold on MLO view. No suspicious other abnormal findings. MM/MM tomosynthesis screening BI IMPRESSION: Additional imaging is recommended ASSESSMENT: BI-RADS Category 0: Incomplete - Need additional Imaging Evaluation RECOMMENDATION: 1. Additional views of the right breast. 2. Targeted ultrasound if warranted after review of the additional views. 3. Radiology department staff will contact the patient for additional imaging. Additional Imaging required Electronically signed by: Bee Henderson DO 02/14/2025 09:57 AM EDT RP Dictated By: Bee Henderson DO Signed By: <Electronically signed by Bee Henderson DO in OV> 02/14/25 0957 DD/ 1209 TD/TT: 02/07/25 1223 Satellite Dish Repairer: Aaron Villaseñor MD IMBrianna BI PROCEDURES Edited Result - Final * OCT, Retina - OU - Both Eyes (02/02/2025 3:30 PM EDT) Narrative BuckMary Alice, OD - 02/08/2025 3:22 PM EDT Images from the original result were not included. OCT [facility] Optical Coherence Tomography Interpretation Report Measurements: OD OS Macula Thickness 256 microns 238 microns Test findings: OD: Normal foveal contour, mild cystoid macular edema superior, temporal and inferior to fovea, no retinal pigment epithelium disruption, no subretinal fluid OS: Normal foveal contour, a few cystic spaces inferior to the fovea, no retinal pigment epithelium disruption, no subretinal fluid Impression and Plan: Moderate non-proliferative diabetic retinopathy with macular edema in both eyes. Vision is not affected at this time. Will monitor here in 6 months. Mary Alice Jane OD OPHTH TOMOGRAPHY Edited Resul t - Final * (ABNORMAL) POCT HGB A1C (12/19/2024 3:01 PM EDT) Hemoglobin A1C 7.3(A) 4.0 - 5.7 % QC Media Lot # [id number] Lot# Expiration Date Blood 12/19/2024 3:01 PM EDT Aaron Villaseñor MD POINT OF CARE TEST ENTER/EDIT OR DERABLES Final Result * POCT Glucose (12/19/2024 3:00 PM EDT) Glucose Blood, POC 134 60 - 200 mg/dL QC Media Lot # [id number] Lot# Expiration Date 72 Blood Capillary blood specimen / Unknown 12/19/2024 3:00 PM EDT Result [facility] Aaron Villaseñor MD POINT OF CARE TEST ENTER/EDIT OR DERABLES Final Result * (ABNORMAL) Albumin, Random Urine W/Creatinine (11/21/2024 9:01 AM EDT) Creatinine, Urine 116.34 mg/dL [facility] Microalbumin Urine 125.0 mg/L H [facility] Microalbum Creatinine Ratio Ur 107.4(H) <30 ug/mg cr [facility] Comment:Albumin/Creatinine R atio Reference Ranges: Normal: < 30 ug/mg creatinine Microalbuminuria: 30 - 300 ug/mg creatinineClinical Albuminuria: > 300 ug/mg creatinine 11/21/2024 9:01 AM EDT 11/21/2024 11:26 AM EDT us Aaron Villaseñor MD LAB URINE ORDERABLES Final Resul t Performing Organization Address City/State/[facility] Co de Phone Number [facility] [address] [place] [address] [phone] from Last 3 Months or Most Recently Relevant to Health Maintenance Insurance [facility] 2 Care Teams Machine Egg Washer Relationship Specialty Start Date End Date Name, MD Aaron [address] [place] [address] PCP - General Internal Medicine 09/14/24 Alison Gary PharmD [address] [place] [address] Pharmacist Pharmacy 10/28/24
--- OUTSIDE RECORDS SUMMARY | 2025-03-10 14:11 | XMS_ITS | Encounter Summary ---
Author Organization [employer] Address [address] [place] [address] Care Team Providers Care Foreign Language Interpreter Name Role Phone Name, Aaron FIGUEROA Primary Care Provider [phone] Alison Gary PharmD Unavailable [phone] Encounter Details Date Type Department Care Team (Latest Contact Info) Description 03/06/2025 Travel Social History Tobacco Use Types Packs/Day [...] Description 03/13/2025 2:30 PM EST Office Visit [facility] [address] [place] [address] NameAaron MD [address] [place] [address] 03/13/2025 3:00 PM EST Immunization [facility] [address] [place] [phone] 04/04/2025 11:00 AM EST Medication Management [address] [address] Alison Gary, PharmD [address] [place] [address] 08/04/2025 1:00 PM EDT Office Visit [facility] [address] [place] [address] Buck, Mary Alice, OD [address] [place] [address] documented as of this encounter Visit Diagnoses Not on filedocumented in this encounter Care Teams Foreign Language Interpreter Relationship Specialty Start Date End Date Aaron Villaseñor MD [address] [place] [phone] PCP - General Internal Medicine 09/14/24 Alison Gary, PharmD [address] [place] [phone] Pharmacist Pharmacy 10/28/24 documented as of this encounter
== END 2025-03-10 11:44 | disposition home or self-care (01) ==
LOC: HO.HHCL 11:43
PROVIDERS: PCP Internal Medicine Geriatric Medicine; Visit Provider Internal Medicine Geriatric Medicine
DX: I10 Essential (primary) hypertension (principal); E11.65 Type 2 diabetes mellitus with hyperglycemia
CPT/HCPCS: 36415; 80048; 80061; 80076

== ENCOUNTER 2025-03-28 13:11 | Outpatient (AMB) | payer OTHER, SELFPAY ==
--- NOTE | 2025-03-28 13:18 | MHC.OFFVIS ---
Intake Visit Reasons: [employer]: Tremors of left hand Allergies No Known Allergies Allergy (Verified 03/23/25 15:23) Medication List - Last Reconciled 03/28/25 by French Lucas MD amlodipine 10 mg PO DAILY aspirin 81 mg PO DAILY atorvastatin (Lipitor) 40 mg PO DAILY empagliflozin (Jardiance) 25 mg PO DAILY lisinopril 40 mg PO DAILY metformin 500 mg PO BID 90 days HPI Comments Details: This is a 59-year-old right-handed woman with a history of type 2 diabetes, hypertension and hyperlipidemia who has developed involuntary left hand movements since September 2024. They are not constant but interfere with her function with the left hand. There is no significant involvement of the left lower extremity and no involuntary movements on the right she has no history of head trauma, no history of stroke or history of neuroleptic use. There is no family history of movement disorders. [facility] Medical History (Updated 03/28/25 @ 13:25 by French Lucas MD) Tremor Social History Alcohol intake: never Review of Systems Neuro Details: Involuntary movements of the left hand Physical Exam Neuro Other: ?Mini Mental Status Exam Level of Consciousness:?Alert.? Orientation:?Knows correct year, month, date, day and season.?Knows correct city, county and state. Knows correct location and floor.? Registration:?Able to register 3 objects.? Attention:?Serial 7's performed accurately.? Recall:?Able to recall 3 out of 3 objects.? Language:?Normal spontaneous speech, fluency, repetition, naming, comprehension, reading, and writing.? Total Score:?30/30.? Neurological Abnormal neurological findings:??Fairly prominent choreiform movements of the left hand and wrist including fingers but not the proximal aspect of the arm. They are ameliorated by sustained posture or when she voluntarily does something such as a dnaqru-xk-mtzb test or a pincer movement. That most prominent at rest. There is no tremor and no change in tone or strength. No abnormalities are movements noted in the left lower extremity or the right side..? Mental Status:?Alert and oriented X 3.?Normal attention, orientation, memory, and affect.? Cranial Nerves:?Pupils are equal, round and reactive to light. Fundoscopy shows normal disc bilaterally. External occular muscles are intact. Visual meyer are full, no ptosis. Face is symmetrical, no facial weakness or droop. Facial sensations are normal. Tongue protrudes in midline. Palate elevates symmetrically. Shoulder shrugging is normal.? Motor Examination:?Normal muscle tone, bulk and strength.?No atrophy or fasciculations.?No drift of the extended upper extremities.?Deep tendon reflexes are 2+.?Plantars are flexor.? Motor Strength:? Proximal Muscles (out of 5):?5 Distal Muscles (out of 5):?5 Neck Flexors (out of 5):?5 Neck Extensors (out of 5):?5 Deltoid (out of 5):?5 Biceps (out of 5):?5 Triceps (out of 5):?5 Serratus Anterior (out of 5):?5 Wrist Extensors (out of 5):?5 APB (out of 5):?5 Finger Spread (out of 5):?5 Ileopsoas (out of 5):?5 Quadriceps (out of 5):?5 Hamstrings (out of 5):?5 Tibialis Anterior (out of 5):?5 Peronei (out of 5):?5 EDB (out of 5):?5 Gastrocnemius (out of 5):?5 Straight Leg Raising:?90 degrees.? Sensory Exam:?Normal light touch, temperature, pinprick, vibration and joint-position sensations.?Rhomberg sign is absent.? Coordination:?No ataxia,?no titubation,?mdlqqr-ou-xogt, ywud-dfjf-dcln test, and rapid alternating movements were normal.? Gait Exam:?Within normal limits.? Cerebellar Signs:?Slugrx-vo-kjze and sogj-ku-bmju is normal.?No dysdiadochokinesia.? Extrapyramidal System:? Left hand and wrist choreiform movements as described above. No tremor or?rigidity, normal facial expressions.?No bradykinesia. No bradyphrenia. Normal arm swing and posture. No propulsion or retropulsion.? Speech:?Normal,?no dysphasia or dysarthria.? General Examination GENERAL APPEARANCE:??normal,?in no acute distress?,?normal,?in no acute distress.? HEAD:??normocephalic,?atraumatic.? EYES:??sclera non-icteric,?conjunctiva clear.? EARS:??auditory canal clear,?tympanic membrane intact, clear.? NOSE:??no lesions.? ORAL CAVITY:??gums normal,?mucosa moist,?no lesions.? THROAT:??clear.? NECK/THYROID:??no cervical lymphadenopathy,?thyroid normal,?neck supple, full range of motion,?no carotid bruit.? SKIN:??no rashes,?no significant birthmarks.? HEART:??S1, S2 normal,?no murmurs?,?S1, S2 normal,?no murmurs.? LUNGS:??clear anteriorly and posteriorly?,?clear anteriorly and posteriorly.? CHEST:??no gross rib deformity,?clear to auscultation.? BACK:??normal exam of spine.? MUSCULOSKELETAL:??normal.? EXTREMITIES:??no edema?,?no edema.? PERIPHERAL PULSES:??normal.? PSYCH:??alert, oriented,?cognitive function intact,?cooperative with exam?,?alert, oriented,?cognitive function intact,?cooperative with exam.? Assessment & Plan Assessment & Plan (1) Choreiform movements: Code(s): R25.8 - Other abnormal involuntary movements Category: Medical Plan Focal choreiform movements of left upper extremity. MRI brain, EEG Orders: Orders MR head/brain wo con 4 Weeks R25.8 - Other abnormal involuntary movements EEG Routine Today R25.8 - Other abnormal involuntary movements Coding Level of Care Code New Pt Level 5 (71511) Diagnoses Choreiform movements R25.8
--- OUTSIDE RECORDS SUMMARY | 2025-03-28 16:58 | XMS_ITS | Clinical Summary ---
Author Organization [employer] Address [address] [facility] [address] [place] [address] Care Team Providers Care Tail Board Worker Name Role Phone Name, Aaron FIGUEROA Primary Care Provider [phone] Alison Gary PharmD Unavailable [phone] Allergies No known active allergies Medications Blood Pressure kit Use once a day 1 kit 09/08/19 25 Active Blood Glucose Monitoring Suppl (FreeStyle [place] Lite) w/Device kit Use to test blood sugar 2 times daily 1 kit 09/08/19 25 Active amLODIPine (Norvasc) 10 MG tablet Take 1 tablet (10 mg) by mouth Once per day. 30 tablet 11 5 3:37 PM EST 09/22/19 25 026 Active metFORMIN (Glucophage) 500 MG tabletIndicatio ns:Type 2 Diabetes Mellitus Take 1 tablet (500 mg) by mouth with breakfast and with evening meal. 180 tablet 3 10/29/19 25 026 Active Lancets miscIndications :New onset type 2 diabetes mellitus (HCC) Use to test blood sugar 2 times daily 100 each 11 10/29/19 25 Active glucose blood (FREESTYLE LITE) test stripIndication s:New onset type 2 diabetes mellitus (HCC) Use to test blood sugar 2 times daily 100 each 10/29/19 25 026 Active Alcohol Swabs 70 % padsIndications :New onset type 2 diabetes mellitus (HCC) Use to test blood sugar 2 times daily 100 each 11 10/29/19 25 Active Multiple Vitamins-Minera ls (CENTRUM ADULT PO) Take 1 tablet by mouth Once per day. Active atorvastatin (Lipitor) 40 MG tabletIndicatio ns:New onset type 2 diabetes mellitus (HCC),Primary hypertension Take 1 tablet (40 mg) by mouth Once per day. 90 tablet 1 11/26/19 Active aspirin 81 MG EC tabletIndicatio ns:New [...] Once per day. 90 tablet 1 02/28/20 Active lisinopril (Zestril) 30 MG tabletIndicatio ns:New [...] Encounters Date Type Department Care Team Description 03/16/2025 Telephone [facility] [address] [place] [address] Solomon Contreras MA dec recalls 03/13/2025 Telephone [facility] [address] [place] [address] Solomon Contreras MA S Cancelled Appt (Provider out 03/13/25 ) 03/10/2025 Telephone [facility] [address] [place] [address] Solomon Contreras MA chart prep 03/06/2025 Travel 02/27/2025 Travel 02/20/2025 Travel 02/02/2025 3:30 PM EDT Office Visit [facility] [address] [place] [address] Mary Alice Jane, OD 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 She verbalized understanding.) from Last 3 Months Immunizations Immunization Administration [...] Care Team (Late st Contact Info) Description 04/04/2025 11:00 AM EST Medication Management [facility] [address] [place] [phone] Alison Gary, AjitD [address] [place] [phone] 06/05/2025 1:30 PM EST Office Visit [facility] [address] [place] [phone] NameAaron MD [address] [place] [address] 08/04/2025 1:00 PM EDT Office Visit [facility] [address] [place] [address] Mary Alice Jane, OD [address] [place], [place] [phone] Health Maintenance Due Date Last Done Comments CT Colonography 1966 Colonoscopy 1966 Colorectal Cancer Screening 1966 Depression Screening 1966 FIT DNA/Cologuard 1966 FIT 1966 FOBT 1966 HIV Screening 1966 Sigmoidoscopy 1966 Alcohol/Substance Use Screening 1978 Hepatitis C Screening 1984 Pap Smear 10/11/1987 Cervical Cancer Screening 1996 HPV/Cotest 1996 RSV Patients and Patients Aged 60 years or older (1 - Risk 50-74 years 1-dose series) 2016 COVID-19 Vaccine ( season) 2025 06/23/2021, 07/05/2020, 06/14/2020 Zoster Vaccines (2 of 2) 03/13/2025 01/16/2025 Diabetes: Hemoglobin A1C 03/21/2025 12/19/2024, 10/03 Diabetes: Urine Protein Screening 11/21/2025 11/21/2024 SDOH Screening 12/12/2025 12/12/2024 Diabetes: Foot Exam 12/19/2025 12/19/2024, 12/19/2024, 12/19/2024, Additional history exists Eye Exam 02/02/2026 02/02/2025, 06/2024, 02/02/2025, Additional history exists Tobacco Screening 02/08/2026 02/08/2025 Disability Screening 03/06/2026 03/06/2025 Lipid Panel 03/10/2026 03/10/2025, 11/21/2024 Mammogram 02/07/2027 02/07/2025 DTaP/Tdap/Td Vaccines (2 - Td or Tdap) 10/28/2034 10/28/2024 Hepatitis B Vaccines Completed 11/25/2024, 10/29/19 Pneumococcal [...] on patient's age to complete this topic Goals Goal Patient Goal Type Associated Problems Recent Progress Patient-Stated? Author Help patients manage their type 2 diabetes Care Plan Help patients manage their type 2 diabetes Solomon Hatfield MA Weekly blood pressure task Care Plan Weekly blood pressure task Solomon Hatfield MA Help patients manage their type 2 diabetes Care Plan Help patients manage their type 2 diabetes Solomon Hatfield MA Patient has chronic kidney disease Care Plan Patient has chronic kidney disease Solomon Hatfield MA Weekly blood pressure task Care Plan Weekly blood pressure task Solomon Hatfield MA Patient has chronic kidney disease Care Plan Patient has chronic kidney disease Solomon Hatfield MA Procedures Procedure Name Priority Date/Time Associated Diagnosis [...] without long-term current use of insulin (CMS/HCC) POCT GLYCATED HEMOGLOBIN, TOTAL Routine 12/19/2024 3:01 PM EDT Type 2 diabetes mellitus with hyperglycemia, without long-term current use of insulin (CMS/HCC) ALBUMIN, RANDOM URINE W/CREATININE Routine 11/21/2024 9:01 AM EDT from Last 3 Months or Most Recently Relevant to Health Maintenance Results * Hepatic Function Panel (03/10/2025 11:49 AM EST) Pathologist [facility] [place] Bilirubin, Total 0.4 0.0 - 1.0 mg/dL [facility] Bilirubin, Direct 0.2 0.0 - 0.5 mg/dL [facility] Aspartate Amino Transferase 27 5 - 31 U/L [facility] Alanine Aminotransferase 31 0 - 31 U/L [facility] Total Protein 7.9 6.5 - 8.0 g/dL [facility] Albumin Level 4.4 3.5 - 5.0 g/dL [facility] Alkaline Phosphatase 83 39 - 117 U/L [facility] 03/10/2025 11:4 9 AM EST 03/10/2025 1:00 PM EST us Aaron Villaseñor MD LAB BLOOD ORDERABLES Final Resul t [facility] [address] [place] [phone] [phone] * (ABNORMAL) Lipid Panel, Standard (03/10/2025 11:49 AM EST) Pathologist [facility] [place] Triglycerides 71 <150 mg/dL [facility] Comment:Desirable Triglyceri de: less than 150 mg/dLBorderline High Triglyceride 150-199 mg/dLHigh Triglyceride: 200-499 mg/dLVery High Triglyceride: greater than or equal to 5OO mg/dL Cholesterol 117 <200 mg/dL [facility] Comment:Desirable Cholestero l: less than 200 mg/dLBorderline High Cholesterol: 200-239 mg/dLHigh Cholesterol: greater than 239 mg/dL LDL Cholesterol Calculated 66 <100 mg/dL [facility] Comment:Desirable LDL: less than 100 mg/dLNear Optimal/Above Optimal LDL: 110- 129 mg/dLBorderline High LDL: 130-159 mg/dLHigh LDL: 160-189 mg/dLVery High LDL: greater than or equal to 190 mg/dL HDL Cholesterol 37(L) >40 mg/dL [facility] Comment:Desirable HDL: great er than 40 mg/dL Note: This HDL assay may give artificially low results in patients with liver disease. 03/10/2025 11:4 9 AM EST 03/10/2025 1:00 PM EST us Aaron Name MD LAB BLOOD ORDERABLES Final Resul t [facility] [address] [place] [phone] * (ABNORMAL) Basic Metabolic Panel (03/10/2025 11:49 AM EST) Only the most recent of2 resultswithin the time period is included. Sodium 144 135 - 145 mmol/L [facility] Potassium 4.0 3.3 - 5.1 mmol/L [facility] Chloride 110(H) 96 - 108 mmol/L [facility] Carbon Dioxide 28 22 - 29 mmol/L [facility] Anion Gap 10(L) 12 - 20 [facility] Urea Nitrogen (BUN) 16 9 - 16 mg/dL [facility] Creatinine, Serum 0.68 0.5 - 1.4 mg/dL [facility] Estimated Glomerular Filt Rate >60 [facility] Comment:Chronic Kidney Disea se: Estimated GFR < 60 mL/min/1.95c1Iqcnzs Kidney Disease: Estimated GFR < 15 mL/min/1.73m2 Glucose 99 60 - 115 mg/dL [facility] Calcium 10.9(H) 8.4 - 10.2 mg/dL [facility] 03/10/2025 11:4 9 AM EST 03/10/2025 1:00 PM EST us Aaron Villaseñor MD LAB BLOOD ORDERABLES Final Resul t [facility] [address] [place] [phone] [phone] * BI Mammogram Screening Tomosynthesis Bilateral (02/07/2025 12:09 PM EDT) Anatomical Region Laterality Modality Breast Bilateral Mammography 02/07/2025 12:0 9 PM EDT Narrative 02/14/2025 10:00 AM EDT [facility] [address] [place] [address] Mammography Report Signed with Addenda Patient: Alina Pak MR#: [id number] : 1965 Acct:[id number] Age/Sex: 59 / F ADM Date: 02/07/25 Loc: HO.MAMMO Attending Dr: Aaron Villaseñor MD Ordering Physician: Aaron Villaseñor MD Results: 0Incomplet e- Need Additional Imaging Evaluation Date of Service: 02/07/25 Follow Up: Additional Imagi ng Procedure(s): MM tomosynthesis screening BI Accession Number(s): [id number] cc: Aaron Villaseñor MD Reason For Exam: [...] OV> 02/14/25 0957 DD/ 08 TD/TT: 02/07/251222 Director Microbiology: Procedure Note Donotuseinterpreter, Image - 02/16/2025 [facility] [address] [place] [address] Dr. [place], [place] [address] Mammography Report Signed with Addenda Patient: Phyllis Pak#: [id number] : 1965Acct:[id number] Age/Sex: 59 / FADM Date: 02/07/25 Loc: HO.MAMMO Attending Dr: Aaron Villaseñor MD Ordering Physician: Name,Aaron MDResults: 0Incomplet e- Need Additional Imaging Evaluation Date of Service: 02/07/25Follow Up: Additional Imagi ng Procedure(s): MM tomosynthesis screening BI Accession Number(s): [id number] cc: Name,Aaron FIGUEROA Reason For Exam: screening [...] Bee Henderson DO 02/16/2025 09:11 AM EDT Workstation: [facility] Addendum Dictated By: Bee Henderson DO Addendum Signed By: <Electronically signed by DO Anabel in OV> 02/16/25 0911 Addendum Cosigned By: DD/ /25/1208 TD/TT: 02/07/2511/25/1222 [...] 02/14/25 0957 DD/ 1209 TD/TT: 02/07/25 1223 Director Microbiology: us Walker Name IMG BI PROCEDURES Edited Result - Final * OCT, Retina - OU - Both Eyes (02/02/2025 3:30 PM EDT) Narrative Mary Alice Jane, OD - 02/08/2025 3:22 PM EDT Images [...] POCT HGB A1C (12/19/2024 3:01 PM EDT) Pathologist [facility] Hemoglobin A1C 7.3(A) 4.0 - 5.7 % QC Media Lot # [id number] Lot# Expiration Date Blood 12/19/2024 3:01 PM EDT us Aaron Villaseñor MD POINT OF CARE TEST ENTER/EDIT OR DERABLES Final Result * (ABNORMAL) Albumin, Random Urine W/Creatinine (11/21/2024 9:01 AM EDT) Creatinine, Urine 116.34 mg/dL [facility] Microalbumin Urine 125.0 mg/L [facility] Microalbum Creatinine Ratio Ur 107.4(H) <30 ug/mg cr [facility] Comment:Albumin/Creatinine R atio Reference Ranges: Normal: < 30 ug/mg creatinine Microalbuminuria: 30 - 300 ug/mg creatinineClinical Albuminuria: > 300 ug/mg creatinine 11/21/2024 9:01 AM EDT 11/21/2024 11:26 AM EDT us Aaron Villaseñor MD LAB URINE ORDERABLES Final Resul t Performing Organization Address City/State/[facility] Co de Phone Number [facility] [address] [place] [address] [phone] from Last 3 Months or Most Recently Relevant to Health Maintenance Additional Health Concerns Active Problems Noted Date Diagnosed Date Help patients manage their type 2 diabetes 03/16 Weekly blood pressure task 03/16/2025 Help patients manage their type 2 diabetes 03/16 Patient has chronic kidney disease 03/16/2025 Weekly blood pressure task 03/16/2025 Patient has chronic kidney disease 03/16/2025 [place] [address] [address] [address] [place] [phone] [place] [address] [place] Care Teams Tail Board Worker Relationship Specialty Start Date End Date Name, MD Aaron [address] [place] [address] PCP - General Internal Medicine 09/14/24 Alison Gary, Joshua [address] [place] [address] Pharmacist Pharmacy 10/28/24
== END 2025-03-28 13:31 | disposition home or self-care (01) ==
LOC: HO.HSM 13:12
PROVIDERS: PCP Internal Medicine Geriatric Medicine; Visit Provider Psychiatry & Neurology Neurology
DX: R25.8 Other abnormal involuntary movements (principal)
CPT/HCPCS: 99205

== ENCOUNTER → 2025-03-28 13:11 | Outpatient (BNVA) | payer OTHER, SELFPAY | PROVIDERS: PCP Internal Medicine Geriatric Medicine; Visit Provider Psychiatry & Neurology Neurology | DX: R25.8 Other abnormal involuntary movements (principal) | CPT/HCPCS: 99202 ==

== ENCOUNTER 2025-03-29 08:58 | Outpatient (REF) | payer OTHER, SELFPAY ==
--- NOTE | ~2025-03-29 | US_ITS ---
EXAMINATION: MM DIAGNOSTIC DIGITAL BREAST TOMOSYNTHESIS, BILATERAL Bilateral Limited ultrasound. CLINICAL INFORMATION: Call back from screening for bilateral asymmetries and right calcifications. COMPARISON: Mammography: Comparison is made with relevant prior exams. TECHNIQUE: Digital breast mammography with tomosynthesis is performed in both the craniocaudal and mediolateral oblique views along with computer-aided detection (CAD). FINDINGS: There are scattered areas of fibroglandular density. Left: Oval mass in the lateral left breast middle to posterior depth persists on additional imaging projections. No suspicious calcifications or other abnormal findings. Targeted color Doppler ultrasound demonstrates a hypoechoic oval circumscribed solid mass versus complicated cyst at 3:00 11 cm from the nipple measuring 7 x 6 x 3 mm which correlates with the oval mass on mammography. Right: There are faint calcifications in the upper central breast middle to posterior depth which are amorphous. Oval mass in the superior breast superficial depth is again seen. No suspicious other abnormal findings. Targeted color Doppler ultrasound demonstrates an intradermal hypoechoic oval sebaceous cyst/epidermal inclusion cyst at 11:00 16 cm from the nipple measuring 10 x 8 x 3 mm. Results are provided to the patient at time of visit by the technologist. US/US Breast BI Limited Mamm Only IMPRESSION: Left: Hypoechoic oval circumscribed solid mass versus complicated cyst at 3:00 11 cm from the nipple. Recommend 6 month follow-up ultrasound for further evaluation of stability. Right: 1. Grouped amorphous calcifications in the right breast. Recommend 6 month follow-up with magnification views for further evaluation of stability. 2. Intradermal Sebaceous cyst on ultrasound. Benign. ASSESSMENT: BI-RADS Category 3: Probably benign RECOMMENDATION: 6 Month F/U Electronically signed by: Bee Henderson DO 03/29/2025 10:47 AM EST
== END 2025-03-29 08:59 | disposition home or self-care (01) ==
LOC: HO.MAMMO 08:58
PROVIDERS: PCP Internal Medicine Geriatric Medicine; Visit Provider Internal Medicine Geriatric Medicine
DX: N64.89 Other specified disorders of breast (principal); R92.1 Mammographic calcification found on diagnostic imaging of breast
CPT/HCPCS: 76642; 77062; 77066

== ENCOUNTER → 2025-03-29 09:30 | Outpatient (BNV) | payer OTHER, SELFPAY | PROVIDERS: PCP Internal Medicine Geriatric Medicine; Visit Provider Internal Medicine | DX: L72.3 Sebaceous cyst (principal) | CPT/HCPCS: 76642; 77062; 77066 ==

== ENCOUNTER 2025-04-19 13:40 | Outpatient (AMB) | payer OTHER, SELFPAY ==
--- NOTE | 2025-04-19 14:01 | MHC.OFFVIS ---
Vital Signs 04/19/25 14:03 Height 5 ft 2 in Weight 138 lb BMI 25.2 BP 166/81 H Blood Pressure Location Lt brachial Position Sitting Pulse 84 Intake Visit Reasons: colo screen Intake Note: Patient new consult for pre Colonoscopy screning Patient cc: denies any GI issues, here for first colonoscopy, no fm hx of colon cancer Tree Puller Required: Yes Tree Puller Language: Turbo Electric Operator Services: Tree Puller Present Tree Puller Name: Gely [id number] Information Interpreted: non-clinical & clinical Accompanied by: Self / Same As Patient Allergies No Known Allergies Allergy (Verified 03/23/25 15:23) Medication List - Last Reconciled 04/19/25 by Nora Mason CNP amlodipine 10 mg PO DAILY aspirin 81 mg PO DAILY atorvastatin (Lipitor) 40 mg PO DAILY empagliflozin (Jardiance) 25 mg PO DAILY lisinopril 40 mg PO DAILY metformin 500 mg PO BID 90 days HPI HPI colo screen: Details: Patient is a 59-year-old female with PMH of diabetes, HTN, HLD. She presents for a pre-colonoscopy screening visit for her first colonoscopy. She reports daily bowel movements with a feeling of complete evacuation and denies any blood in her stool, nausea, vomiting, heartburn, or dysphagia. Her medical history is significant for diabetes and hypertension, for which she takes metformin, Jardiance, and baby aspirin. She reports intentional weight loss from the 150s to the 130s by eliminating candy and eating healthier to manage her conditions. She has a normal appetite. Recent lab work from last month showed good kidney and liver function, with no evidence of anemia. Patient denies: fever/chills, n/v, appetite changes, unintentional wt loss, ab pain or melena/hematochezia. Social hx: -denies ETOH use -denies recreational drug use -non-smoker - family hx as below -denies personal hx of CA -denies significant cardiopulmonary history -tolerated anesthesia in the past without difficulty. [facility] Medical History (Updated 04/19/25 @ 14:33 by Nora Mason CNP) Diabetes Hyperlipidemia Hypertension Colon cancer screening Breast calcification, right Tremor Social History Alcohol intake: never Review of Systems Const Reports as per HPI ENT Reports as per HPI Card Reports as per HPI Resp Reports as per HPI GI Reports as per HPI Reports as per HPI Physical Exam Const General: healthy appearing, no acute distress and well developed Nutritional Appearance: average body habitus Orientation/consciousness: patient oriented x3 HEENT Head: Yes normal to inspection, Yes normocephalic and Yes atraumatic Face and sinus: Yes normal facial exam Eyes General: appearance normal, both eyes and all related structures Neck Neck: Yes normal visual inspection Resp Effort & Inspection: normal respiratory effort, able to speak in complete sentences, no tracheal deviation and symmetric chest movement Cardio Jugular venous distension: no JVD Neuro General: patient oriented x3 Gait exam (Neuro): Normal gait present Psych Appearance: grossly normal Mental Status: mental status grossly normal Speech and movement: Normal speech and movement present Affect: normal affect Attitude: cooperative Thought process: Normal thought process present Thought content: Normal thought content present Insight: Good insight present (Psych) Judgement: Good judgement present (Psych) Assessment & Plan Assessment & Plan (1) Colon cancer screening: Code(s): Z12.11 - Encounter for screening for malignant neoplasm of colon Category: Medical Plan: Due for index screening colonoscopy. No alarm features. Medications: -prescriptions for laxative tablets and MiraLax sent to pharmacy; instructions for Gatorade purchase and clear liquid diet given. -understands diabetes medications and ASA will need to be held days prior to procedure. Nurse to review med holds per protocol. Patient educated on scheduling process, procedure preparation, including avoiding certain foods and ensuring clear liquid intake Advised on necessity for ride post-procedure due to sedation. (2) Diabetes: Code(s): E11.9 - Type 2 diabetes mellitus without complications Category: Medical Qualifiers: Diabetes mellitus type: type 2 Diabetes mellitus terminal operations supervisor insulin use: without jail use Diabetes mellitus complication status: with hyperglycemia Qualified Code(s): E11.65 - Type 2 diabetes mellitus with hyperglycemia Plan: Managed with Jardiance and metformin, along with lifestyle modifications. -continue current regimen per PCP Plan Follow-up after colonoscopy or sooner as needed Time: I spent a total of 25 minutes on the date of encounter which includes: Preparing to see the patient (reviewed previous documentation, test results and medical history) Performing a medically appropriate exam and/or evaluation Ordering medications, tests, and procedures Documenting clinical information in the health record Orders: Referrals GI Procedure Notification Z12.11 - Encounter for screening for malignant neoplasm of colon Medications: New polyethylene glycol 3350 (Miralax) per colonoscopy prep instructions 238 grams PO ONCE 238 grams 0RF bisacodyl take four tablets once day of colonoscopy prep 20 mg (4 x 5 mg) PO ONCE 4 tabs 0RF Coding Level of Care Code New Pt New Pt Level 2 (61897) Patient Type New Diagnoses Colon cancer screening Z12.11 Type 2 diabetes mellitus with hyperglycemia, without long-term current use of insulin E11.65 Diabetes mellitus type: type 2 Diabetes mellitus jail insulin use: without terminal operations supervisor use Diabetes mellitus complication status: with hyperglycemia
[2025-04-19 14:03] VITALS: BP 166/81; PULSE 84; BMI 25.2
== END 2025-04-19 14:24 | disposition home or self-care (01) ==
LOC: HO.HGI 13:41
PROVIDERS: PCP Internal Medicine Geriatric Medicine; Visit Provider Nurse Practitioner Family
DX: Z01.818 Encounter for other preprocedural examination (principal); Z12.11 Encounter for screening for malignant neoplasm of colon; E11.65 Type 2 diabetes mellitus with hyperglycemia
CPT/HCPCS: 99202

== ENCOUNTER → 2025-04-19 13:40 | Outpatient (BNVA) | payer OTHER, SELFPAY | PROVIDERS: PCP Internal Medicine Geriatric Medicine; Visit Provider Nurse Practitioner Family | DX: Z12.11 Encounter for screening for malignant neoplasm of colon (principal); E11.65 Type 2 diabetes mellitus with hyperglycemia; Z79.84 Long term (current) use of oral hypoglycemic drugs | CPT/HCPCS: 99202 ==

== ENCOUNTER 2025-04-20 08:15 | Outpatient (AMB) | payer OTHER, SELFPAY ==
--- NOTE | 2025-04-20 08:18 | A.OFFVIS_ITS ---
Vital Signs 04/20/25 08:28 Height 5 ft 2 in Weight 136 lb 8 oz BMI 25.0 Intake Visit Reasons: Stereo Bx Rt breast cals Intake Note: Patient breast for a breast consult for Stereotactic biopsy right breast calcifications. Pt c/o; denies breast pain or tenderness, denies change in size or shape of breast, denies nipple discharge. Breast Bx scheduled: 04/20/2025 @ 0900am Barn And Property Manager Required: Yes Barn And Property Manager Language: Teachers' Assistant Services: Barn And Property Manager Present Barn And Property Manager Name: Hans Information Interpreted: non-clinical & clinical Accompanied by: Self / Same As Patient Allergies No Known Allergies Allergy (Verified 04/20/25 08:29) Medication List - Last Reconciled 04/20/25 by Thien Gage MD amlodipine 10 mg PO DAILY aspirin 81 mg PO DAILY atorvastatin (Lipitor) 40 mg PO DAILY bisacodyl 20 mg (4 x 5 mg) PO ONCE empagliflozin (Jardiance) 25 mg PO DAILY lisinopril 40 mg PO DAILY metformin 500 mg PO BID 90 days polyethylene glycol 3350 (Miralax) 238 grams PO ONCE HPI HPI Stereo Bx Rt breast cals: Details: [age] year female referred for a left breast mass. She had undergone a screening mammogram last February, and this grouped amorphous calcifications in the right breast. A stereotactic biopsy was therefore recommended by the radiologist. The mammogram and ultrasound also showed question of a solid mass on the left breast. Mammogram and ultrasound and this showed a circumscribed hypoechoic solid mass versus complicated cyst at the 3 o'clock position of the left breast, measuring 7 x 6 x 3 mm. A follow up ultrasound in 6 months was recommended by the radiologist for this. Her menarche was at age of 13. Her 1st was at the age of 26. She had 1 , with twins. She had menopause at age of 46. She describes a paternal aunt with breast cancer but this was at an advanced age. She denies any palpable breast mass. [facility], [facility] Medical History Diabetes Hyperlipidemia Hypertension Colon cancer screening Breast calcification, right Tremor Surgical History H/O section Family History Paternal Aunt Breast cancer Maternal Aunt Breast cancer Social History Alcohol intake: never Patient Tobacco Use Status: Never used Tobacco Female Reproductive History Menstrual Age of Menarche: 13 Total pregnancies: 1 (Twins) Date of Mammogram: 03/29/25 Review of Systems Const Denies chills and Denies fever(s) Card Denies chest pain, Denies dyspnea and Denies dyspnea on exertion Resp Denies cough, Denies dyspnea and Denies dyspnea on exertion GI Denies hematochezia and Denies change in bowel habits Denies hematuria Musc Denies back pain and Denies limited range of motion Neuro Details: Has uncontrolled movements of her left arm and leg Denies focal weakness and Denies convulsions Psych Denies depression and Denies mood swings Physical Exam Vital Signs: BMI result Body Mass Index 25.0 Const General: comfortable and no acute distress Orientation/consciousness: patient oriented x3 Neck Neck: Yes no lymphadenopathy Chest Other: Has pendulous breasts, no palpable breast masses, no axillary lymphadenopathy, sebaceous cyst noted on the right breast lateral Resp Auscultation: clear to auscultation bilaterally Cardio Rhythm: regular rhythm GI Palpation (GI): Soft to palpation, nontender and no guarding Neuro General: patient oriented x3 Assessment & Plan Assessment & Plan (1) Breast calcification, right: Code(s): R92.1 - Mammographic calcification found on diagnostic imaging of breast Category: Medical Plan: She has this grouped amorphous calcifications on the right breast as described above. A stereotactic biopsy was recommended by the radiologist. I explained to her the technique of this procedure I will see her in the office after her biopsy next week to discuss the path report. She does not seem to be above average risk for breast cancer. She also has this question of a cystic versus solid mass on the left breast and a follow up ultrasound had been recommended in about 6 months Orders: Orders MM stereotactic biopsy RT 04/19/25 R92.1 - Mammographic calcification found on diagnostic imaging of breast Coding Level of Care Code New Pt Level 3 (22709) Diagnoses Breast calcification, right R92.1
[2025-04-20 08:28] VITALS: BMI 25.0
--- OUTSIDE RECORDS SUMMARY | 2025-04-20 08:30 | XMS_ITS | Clinical Summary ---
Author Organization [employer] Address [address] [facility] [address] [place] [address] Care Team Providers Care Reactor Operator Name Role Phone Name, Aaron FIGUEROA Primary Care Provider [phone] Alison Gary PharmD Unavailable [phone] Allergies No known active allergies Medications Blood Pressure kit Use once a day 1 kit 09/08/19 25 Active Blood Glucose Monitoring Suppl ([employer] [place] Lite) w/Device kit Use to test blood sugar 2 times daily 1 kit 09/08/19 25 Active amLODIPine (Norvasc) 10 MG tablet Take 1 tablet (10 mg) by mouth Once per day. 30 tablet 11 5 3:37 PM EST 09/22/19 25 026 Active Multiple Vitamins-Minera ls (CENTRUM ADULT PO) Take 1 tablet by mouth Once per day. Active Alcohol Swabs 70 % padsIndications :Type 2 diabetes mellitus with hyperglycemia, without long-term current use of insulin (HCC) Use to test blood sugar 2 times daily 100 each 11 5 5:37 PM EST 04/04/20 25 Active aspirin 81 MG EC tabletIndicatio ns:Type 2 diabetes mellitus with hyperglycemia, without long-term current use of insulin (HCC) Take 1 tablet (81 mg) by mouth Once per day. 90 tablet 3 04/04/20 25 026 Active atorvastatin (Lipitor) 40 MG tabletIndicatio ns:Type 2 diabetes mellitus with hyperglycemia, without long-term current use of insulin (HCC) Take 1 tablet (40 mg) by mouth Once per day. 90 tablet 3 04/04/20 25 Active empagliflozin (Jardiance) 25 MGIndications:T ype 2 diabetes mellitus with hyperglycemia, without long-term current use of insulin ([facility]) Take 1 tablet (25 mg) by mouth Once per day. 90 tablet 3 04/04/20 25 026 Active glucose blood (FREESTYLE LITE) test stripIndication s:Type 2 diabetes mellitus with hyperglycemia, without long-term current use of insulin (HCC) Use to test blood sugar 2 times daily 100 each 11 5 5:37 PM EST 04/04/20 25 026 Active Lancets miscIndications :Type 2 diabetes mellitus with hyperglycemia, without long-term current use of insulin (HCC) Use to test blood sugar 2 times daily 100 each 11 5 5:36 PM EST 04/04/20 25 Active lisinopril (Zestril) 40 MG tabletIndicatio ns:Type 2 diabetes mellitus with hyperglycemia, without long-term current use of insulin ([facility]),Primary hypertension Take 1 tablet (40 mg) by mouth Once per day. 90 tablet 1 04/04/20 25 Active metFORMIN (Glucophage) 500 MG tabletIndicatio ns:Type 2 Diabetes Mellitus Take 1 tablet (500 mg) by mouth with breakfast and with evening meal. 180 tablet 3 04/04/20 25 026 Active metFORMIN (Glucophage) 500 MG tabletIndicatio ns:Type 2 Diabetes Mellitus Take 1 tablet (500 mg) by mouth with breakfast and with evening meal. 180 tablet 3 10/29/19 25 025 Discontinued(Re order (will not trigger notification to Pharmacy)) Lancets miscIndications :New onset type 2 diabetes mellitus (HCC) Use to test blood sugar 2 times daily 100 each 10/29/19 25 025 Discontinued(Re order (will not trigger notification to Pharmacy)) glucose blood (FREESTYLE LITE) test stripIndication s:New onset type 2 diabetes mellitus (HCC) Use to test blood sugar 2 times daily 100 each 10/29/19 25 025 Discontinued(Re order (will not trigger notification to Pharmacy)) Alcohol Swabs 70 % padsIndications :New onset type 2 diabetes mellitus (HCC) Use to test blood sugar 2 times daily 100 each 11 10/29/19 025 Discontinued(Re order (will not trigger notification to Pharmacy)) atorvastatin (Lipitor) 40 MG tabletIndicatio ns:New onset type 2 diabetes mellitus (HCC),Primary hypertension Take 1 tablet (40 mg) by mouth Once per day. 90 tablet 1 11/26/19 25 025 Discontinued(Re order (will not trigger notification to Pharmacy)) aspirin 81 MG EC tabletIndicatio ns:New onset type 2 diabetes mellitus (HCC) Take 1 tablet (81 mg) by mouth Once per day. 90 tablet 3 11/26/19 25 025 Discontinued(Re order (will not trigger notification to Pharmacy)) empagliflozin (Jardiance) 25 MG Take 1 tablet (25 mg) by mouth Once per day. 90 tablet 3 01/17/20 25 025 Discontinued(Re order (will not trigger notification to Pharmacy)) lisinopril (Zestril) 40 MG tabletIndicatio ns:Primary hypertension,Ty pe 2 diabetes mellitus with hyperglycemia, without long-term current use of insulin (HCC) Take 1 tablet (40 mg) by mouth Once per day. 90 tablet 1 02/28/20 025 Discontinued(Re order (will not trigger notification to Pharmacy)) Active Problems Problem Noted Date Diagnosed Date Type 2 diabetes mellitus wit h hyperglycemia, without long-term current use of insulin 12/20/2024 Overview (12/20/2024): DM shoes and socks Primary hypertension 09/07/2024 Encounters Date Type Department Care Team Description 04/04/2025 Travel 04/03/2025 Travel 03/29/2025 Orders Only [facility] [address] [place] [address] Name, MD Aaron 03/16/2025 Telephone [facility] [address] [place] [address] Solomon Contreras MA dec recalls 03/13/2025 Telephone [facility] [address] [place] [address] Solomon Contreras MA [facility] Cancelled Appt (Provider out 03/13/25 ) 03/10/2025 Telephone [facility] [address] [place] [address] Solomon Contreras MA chart prep 03/06/2025 Travel 02/27/2025 Travel 02/20/2025 Travel 02/02/2025 3:30 PM EDT Office Visit [facility] [address] [place] [address] Buck, Mary Alice, OD 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) (Primary Dx); Combined forms of age-related cataract of both eyes; Presbyopia 02/02/2025 Travel 01/30/2025 Travel from Last 3 Months Immunizations Immunization [...] Sign Reading Time Taken Comments Blood Pressure 118/60 04/04/2025 11:28 AM EST Pulse 94 12/19/2024 2:59 PM EDT Temperature [...] Care Team (Late st Contact Info) Description 05/08/2025 1:00 PM EST Immunization [facility] [address] [place] [id number] 06/05/2025 1:30 PM EST Office Visit [facility] [address] [place] [id number] Name, MD Aaron [address] [place] [address] 08/04/2025 1:00 PM EDT Office Visit [facility] [address] [place] [id number] Mary Alice Jane, FREDDY [address] [place] [address] Health Maintenance Due Date Last Done Comments [...] of 2) 03/13/2025 01/16/2025 Diabetes: Hemoglobin A1C 10/03/2025 025, 12/19/2024, 10/28/2024 Diabetes: Urine Protein Screening 11/21/2025 11/21/2024 SDOH Screening 12/12/2025 12/12/2024 Diabetes: Foot Exam 12/19/2025 12/19/2024, 12/19/2024, 12/19/2024, Additional history exists Eye Exam 02/02/2026 02/02/2025, 06/2024, 02/02/2025, Additional history exists Tobacco Screening 02/08/2026 02/08/2025 Disability Screening 03/06/2026 03/06/2025 Lipid Panel 03/10/2026 03/10/2025, 11/21/2024 Mammogram 03/29/2027 03/29/2025, 02/07/2025 DTaP/Tdap/Td Vaccines (2 - Td or [...] Help patients manage their type 2 diabetes No Solomon Contreras MA Weekly blood pressure task Care Plan Weekly blood pressure task No Solomon Contreras MA Help patients manage their type 2 diabetes Care Plan Help patients manage their type 2 diabetes No Solomon Contreras MA Patient has chronic kidney disease Care Plan Patient has chronic kidney disease No Solomon Contreras MA Weekly blood pressure task Care Plan Weekly blood pressure task No Solomon Contreras MA Patient has chronic kidney disease Care Plan Patient has chronic kidney disease No Solomon Contreras MA Weekly blood pressure task Care Plan Weekly blood pressure task No Puia, Alison, PharmD Weekly blood pressure task Care Plan Weekly blood pressure task No Puia, Alison, PharmD Patient has chronic kidney disease Care Plan Patient has chronic kidney disease No Puia, Alison, PharmD Patient has chronic kidney disease Care Plan Patient has chronic kidney disease No Puia, Alison, PharmD Procedures Procedure Name Priority Date/Time Associated Diagnosis Comments POCT GLYCATED HEMOGLOBIN, TOTAL Routine 04/04/2025 11:34 AM EST Type 2 diabetes mellitus with hyperglycemia, without long-term current use of insulin (HCC) BI US BREAST LIMITED BILATERAL Routine 03/29/2025 9:43 AM EST BI MAMMOGRAM DIAGNOSTIC TOMOSYNTHESIS ADDED VIEW BILATERAL Routine 03/29/2025 9:00 AM EST LIPID PANEL, STANDARD Routine 03/10/2025 11:49 AM [...] associated with type 2 diabetes mellitus (HCC) ALBUMIN, RANDOM URINE W/CREATININE Routine 11/21/2024 9:01 AM EDT from Last 3 Months or Most Recently Relevant to Health Maintenance Results * (ABNORMAL) POCT Hgb A1c (04/04/2025 11:34 AM EST) Hemoglobin A1C 6.2(A) 4.0 - 5.7 % Blood 04/04/2025 11:3 4 AM EST us Aaron Villaseñor MD POINT OF CARE TEST ENTER/EDIT OR DERABLES Final Result * BI US Breast Limited Bilateral (03/29/2025 9:43 AM EST) Anatomical Region Laterality Modality Breast Bilateral Ultrasound 03/29/2025 9:43 AM EST Narrative 03/29/2025 10:50 AM EST [facility] [address] [place] [address] Ultrasound Report Signed with Michelle Patient: Alina Pak MR#: [id number] : 1965 Acct:[id number] Age/Sex: 59 / F ADM Date: 03/29/25 Loc: HO.MAMMO Attending Dr: Aaron Villaseñor MD Ordering Physician: Aaron Villaseñor MD Date of Service: 03/29/25 Procedure(s): US Breast BI Limited Mamm Only Accession Number(s): [id number] cc: Aaron Villaseñor MD Reason for Exam: BILAT BR AV US/ LT ASYMM/ RT CALS UPPER BR ASYMM ADDENDUM ADDENDUM #1 ADDENDUM: IMPRESSION: Left: Hypoechoic oval circumscribed solid mass versus complicated cyst at 3:00 11 cm from the nipple. Recommend 6 month follow-up ultrasound for further evaluation of stability. Right: 1. Grouped amorphous calcifications in the right breast. Recommend stereotactic core needle biopsy at this time for confirmation. The findings and recommendations were discussed with the patient the procedure will be scheduled. 2. Intradermal Sebaceous cyst on ultrasound. Benign. OVERALL ASSESSMENT: Category 4: Suspicious RECOMMENDATION: Biopsy recommended Electronically signed by: Bee Henderson DO 03/29/2025 03:27 PM EST Addendum Dictated By: Bee Henderson DO Addendum Signed By: <Electronically signed by Bee Henderson DO in OV> 03/29/25 1527 Addendum Cosigned By: DD/ TD/TT: 03/29/25 EXAMINATION: MM DIAGNOSTIC DIGITAL BREAST TOMOSYNTHESIS, BILATERAL Bilateral Limited ultrasound. CLINICAL INFORMATION: Call back from screening for bilateral asymmetries and right calcifications. COMPARISON: Mammography: Comparison is made with relevant prior exams. TECHNIQUE: Digital breast mammography with tomosynthesis is performed in both the craniocaudal and mediolateral oblique views along with computer-aided detection (CAD). FINDINGS: There are scattered areas of fibroglandular density. Left: Oval mass in the lateral left breast middle to posterior depth persists on additional imaging projections. No suspicious calcifications or other abnormal findings. Targeted color Doppler ultrasound demonstrates a hypoechoic oval circumscribed solid mass versus complicated cyst at 3:00 11 cm from the nipple measuring 7 x 6 x 3 mm which correlates with the oval mass on mammography. Right: There are faint calcifications in the upper central breast middle to posterior depth which are amorphous. Oval mass in the superior breast superficial depth is again seen. No suspicious other abnormal findings. Targeted color Doppler ultrasound demonstrates an intradermal hypoechoic oval sebaceous cyst/epidermal inclusion cyst at 11:00 16 cm from the nipple measuring 10 x 8 x 3 mm. Results are provided to the patient at time of visit by the technologist. US/US Breast BI Limited Mamm Only IMPRESSION: Left: Hypoechoic oval circumscribed solid mass versus complicated cyst at 3:00 11 cm from the nipple. Recommend 6 month follow-up ultrasound for further evaluation of stability. Right: 1. Grouped amorphous calcifications in the right breast. Recommend 6 month follow-up with magnification views for further evaluation of stability. 2. Intradermal Sebaceous cyst on ultrasound. Benign. ASSESSMENT: BI-RADS Category 3: Probably benign RECOMMENDATION: 6 Month F/U Electronically signed by: Bee Henderson DO 03/29/2025 10:47 AM EST RP Dictated By: Bee Henderson DO Signed By: <Electronically signed by Bee Henderson DO in OV> 03/29/25 1047 DD/ 0943 TD/TT: 03/29/25 1004 Lead Clinical Research Coordinator: Procedure Note Donotuseinterpreter, Image - 03/29/2025 [facility] [address] [place] [address] Ultrasound Report Signed with Addenda Patient: Phyllis Pak#: [id number] : 1965Acct:[id number] Age/Sex: 59 / FADM Date: 03/29/25 Loc: HO.MAMMO Attending Dr: Aaron Villaseñor MD Ordering Physician: Aaron Villaseñor MD Date of Service: 03/29/25 Procedure(s): US Breast BI Limited Mamm Only Accession Number(s): [id number] cc: Aaron Villaseñor MD Reason for Exam: BILAT BR AV US/ LT ASYMM/ RT CALS UPPER BR ASYMM ADDENDUM ADDENDUM #1 ADDENDUM: IMPRESSION: Left: Hypoechoic oval circumscribed solid mass versus complicated cyst at 3:00 11 cm from the nipple. Recommend 6 month follow-up ultrasound for further evaluation of stability. Right: 1. Grouped amorphous calcifications in the right breast. Recommend stereotactic core needle biopsy at this time for confirmation. The findings and recommendations were discussed with the patient the procedure will be scheduled. 2. Intradermal Sebaceous cyst on ultrasound. Benign. OVERALL ASSESSMENT: Category 4: Suspicious RECOMMENDATION: Biopsy recommended Electronically signed by: Bee Henderson DO 03/29/2025 03:27 PM EST RP Addendum Dictated By: Bee Henderson DO Addendum Signed By: <Electronically signed by DO Anabel in OV> 03/29/25 1527 Addendum Cosigned By: DD/ TD/TT: 03/29/25 EXAMINATION: MM DIAGNOSTIC DIGITAL BREAST TOMOSYNTHESIS, BILATERAL Bilateral Limited ultrasound. CLINICAL INFORMATION: Call back from screening for bilateral asymmetries and right calcifications. COMPARISON: Mammography: Comparison is made with relevant prior exams. TECHNIQUE: Digital breast mammography with tomosynthesis is performed in both the craniocaudal and mediolateral oblique views along with computer-aided detection (CAD). FINDINGS: There are scattered areas of fibroglandular density. Left: Oval mass in the lateral left breast middle to posterior depth persists on additional imaging projections. No suspicious calcifications or other abnormal findings. Targeted color Doppler ultrasound demonstrates a hypoechoic oval circumscribed solid mass versus complicated cyst at 3:00 11 cm from the nipple measuring 7 x 6 x 3 mm which correlates with the oval mass on mammography. Right: There are faint calcifications in the upper central breast middle to posterior depth which are amorphous. Oval mass in the superior breast superficial depth is again seen. No suspicious other abnormal findings. Targeted color Doppler ultrasound demonstrates an intradermal hypoechoic oval sebaceous cyst/epidermal inclusion cyst at 11:00 16 cm from the nipple measuring 10 x 8 x 3 mm. Results are provided to the patient at time of visit by the technologist. US/US Breast BI Limited Mamm Only IMPRESSION: Left: Hypoechoic oval circumscribed solid mass versus complicated cyst at 3:00 11 cm from the nipple. Recommend 6 month follow-up ultrasound for further evaluation of stability. Right: 1. Grouped amorphous calcifications in the right breast. Recommend 6 month follow-up with magnification views for further evaluation of stability. 2. Intradermal Sebaceous cyst on ultrasound. Benign. ASSESSMENT: BI-RADS Category 3: Probably benign RECOMMENDATION: 6 Month F/U Electronically signed by: Bee Henderson DO 03/29/2025 10:47 AM EST Dictated By: Bee Henderson DO Signed By: <Electronically signed by Bee Henderson DO in OV> 03/29/25 1047 DD/ 2 TD/TT: 03/29/25 100 Lead Clinical Research Coordinator: us Aaron Villaseñor MD IMG US PROCEDURES Edited Result - Final * BI Mammogram Diagnostic Tomosynthesis added bilateral (03/29/2025 9:00 AM EST) Anatomical Region Laterality Modality Breast Left Mammography 03/29/2025 9:00 AM EST Narrative 03/29/2025 10:50 AM EST [facility] [address] [place], [place] [address] Mammography Report Signed with Addenda Patient: Alina Pak MR#: [id number] : 1965 Acct:[id number] Age/Sex: 59 / F ADM Date: 03/29/25 Loc: HO.MAMMO Attending Dr: Aaron Villaseñor MD Ordering Physician: Aaron Villaseñor MD Results: 4Suspiciou s Date of Service: 03/29/25 Follow Up: Biopsy Recommend ed Procedure(s): MM tomosynthesis added view BI Accession Number(s): [id number] cc: Aaron Villaseñor MD Reason For Exam: BILAT BR AV US/ LT ASYMM/ RT CALS UPPER BR ASYMM ADDENDUM ADDENDUM #1 ADDENDUM: IMPRESSION: Left: Hypoechoic oval circumscribed solid mass versus complicated cyst at 3:00 11 cm from the nipple. Recommend 6 month follow-up ultrasound for further evaluation of stability. Right: 1. Grouped amorphous calcifications in the right breast. Recommend stereotactic core needle biopsy at this time for confirmation. The findings and recommendations were discussed with the patient the procedure will be scheduled. 2. Intradermal Sebaceous cyst on ultrasound. Benign. OVERALL ASSESSMENT: Category 4: Suspicious RECOMMENDATION: Biopsy recommended Electronically signed by: Bee Henderson DO 03/29/2025 03:27 PM EST Addendum Dictated By: Bee Henderson DO Addendum Signed By: <Electronically signed by Bee Henderson DO in OV> 03/29/25 1527 Addendum Cosigned By: DD/ TD/TT: 03/29/25 EXAMINATION: MM DIAGNOSTIC DIGITAL BREAST TOMOSYNTHESIS, BILATERAL Bilateral Limited ultrasound. CLINICAL INFORMATION: Call back from screening for bilateral asymmetries and right calcifications. COMPARISON: Mammography: Comparison is made with relevant prior exams. TECHNIQUE: Digital breast mammography with tomosynthesis is performed in both the craniocaudal and mediolateral oblique views along with computer-aided detection (CAD). FINDINGS: There are scattered areas of fibroglandular density. Left: Oval mass in the lateral left breast middle to posterior depth persists on additional imaging projections. No suspicious calcifications or other abnormal findings. Targeted color Doppler ultrasound demonstrates a hypoechoic oval circumscribed solid mass versus complicated cyst at 3:00 11 cm from the nipple measuring 7 x 6 x 3 mm which correlates with the oval mass on mammography. Right: There are faint calcifications in the upper central breast middle to posterior depth which are amorphous. Oval mass in the superior breast superficial depth is again seen. No suspicious other abnormal findings. Targeted color Doppler ultrasound demonstrates an intradermal hypoechoic oval sebaceous cyst/epidermal inclusion cyst at 11:00 16 cm from the nipple measuring 10 x 8 x 3 mm. Results are provided to the patient at time of visit by the technologist. MM/MM tomosynthesis added view BI IMPRESSION: Left: Hypoechoic oval circumscribed solid mass versus complicated cyst at 3:00 11 cm from the nipple. Recommend 6 month follow-up ultrasound for further evaluation of stability. Right: 1. Grouped amorphous calcifications in the right breast. Recommend 6 month follow-up with magnification views for further evaluation of stability. 2. Intradermal Sebaceous cyst on ultrasound. Benign. ASSESSMENT: BI-RADS Category 3: Probably benign RECOMMENDATION: 6 Month F/U Electronically signed by: Bee Henderson DO 03/29/2025 10:47 AM [facility] Dictated By: Bee Henderson DO Signed By: <Electronically signed by Bee Henderson DO in OV> 03/29/25 1047 DD/ 9 TD/TT: 03/29/25924 Lead Clinical Research Coordinator: Procedure Note Donotuseinterpreter, Image - 03/29/2025 [facility] [place] [address] Mammography Report Signed with Addenda Patient: Phyllis Pak#: [id number] : 1965Acct:[id number] Age/Sex: 59 / FADM Date: 03/29/25 Loc: HO.MAMMO Attending Dr: Aaron Villaseñor MD Ordering Physician: Aaron Villaseñor MDResults: 4Suspiciou s Date of Service: 03/29/25Follow Up: Biopsy Recommend ed Procedure(s): MM tomosynthesis added view BI Accession Number(s): [id number] cc: Name,Aaron FIGUEROA Reason For Exam: BILAT BR AV US/ LT ASYMM/ RT CALS UPPER BR ASYMM ADDENDUM ADDENDUM #1 ADDENDUM: IMPRESSION: Left: Hypoechoic oval circumscribed solid mass versus complicated cyst at 3:00 11 cm from the nipple. Recommend 6 month follow-up ultrasound for further evaluation of stability. Right: 1. Grouped amorphous calcifications in the right breast. Recommend stereotactic core needle biopsy at this time for confirmation. The findings and recommendations were discussed with the patient the procedure will be scheduled. 2. Intradermal Sebaceous cyst on ultrasound. Benign. OVERALL ASSESSMENT: Category 4: Suspicious RECOMMENDATION: Biopsy recommended Electronically signed by: Bee Henderson DO 03/29/2025 03:27 PM [facility] Addendum Dictated By: Bee Henderson DO Addendum Signed By: <Electronically signed by DO Anabel in OV> 03/29/25 1527 Addendum Cosigned By: DD/ TD/TT: 03/29/25 EXAMINATION: MM DIAGNOSTIC DIGITAL BREAST TOMOSYNTHESIS, BILATERAL Bilateral Limited ultrasound. CLINICAL INFORMATION: Call back from screening for bilateral asymmetries and right calcifications. COMPARISON: Mammography: Comparison is made with relevant prior exams. TECHNIQUE: Digital breast mammography with tomosynthesis is performed in both the craniocaudal and mediolateral oblique views along with computer-aided detection (CAD). FINDINGS: There are scattered areas of fibroglandular density. Left: Oval mass in the lateral left breast middle to posterior depth persists on additional imaging projections. No suspicious calcifications or other abnormal findings. Targeted color Doppler ultrasound demonstrates a hypoechoic oval circumscribed solid mass versus complicated cyst at 3:00 11 cm from the nipple measuring 7 x 6 x 3 mm which correlates with the oval mass on mammography. Right: There are faint calcifications in the upper central breast middle to posterior depth which are amorphous. Oval mass in the superior breast superficial depth is again seen. No suspicious other abnormal findings. Targeted color Doppler ultrasound demonstrates an intradermal hypoechoic oval sebaceous cyst/epidermal inclusion cyst at 11:00 16 cm from the nipple measuring 10 x 8 x 3 mm. Results are provided to the patient at time of visit by the technologist. MM/MM tomosynthesis added view BI IMPRESSION: Left: Hypoechoic oval circumscribed solid mass versus complicated cyst at 3:00 11 cm from the nipple. Recommend 6 month follow-up ultrasound for further evaluation of stability. Right: 1. Grouped amorphous calcifications in the right breast. Recommend 6 month follow-up with magnification views for further evaluation of stability. 2. Intradermal Sebaceous cyst on ultrasound. Benign. ASSESSMENT: BI-RADS Category 3: Probably benign RECOMMENDATION: 6 Month F/U Electronically signed by: Bee Henderson DO 03/29/2025 10:47 AM EST Dictated By: Bee Henderson DO Signed By: <Electronically signed by Bee Henderson DO in OV> 03/29/25 1047 DD/ 0900 TD/TT: 03/29/25 0925 Lead Clinical Research Coordinator: us Aaron Name MD NGUYEN BI PROCEDURES Edited Result - Final * Hepatic Function Panel (03/10/2025 11:49 AM EST) Bilirubin, Total 0.4 0.0 - 1.0 mg/dL [facility] Bilirubin, Direct 0.2 0.0 - 0.5 mg/dL [facility] Aspartate Amino Transferase 27 5 - 31 U/L [facility] Alanine Aminotransferase 31 0 - 31 U/L [facility] Total Protein 7.9 6.5 - 8.0 g/dL [facility] Albumin Level 4.4 3.5 - 5.0 g/dL [facility] Alkaline Phosphatase 83 39 - 117 U/L [facility] 03/10/2025 11:4 9 AM EST 03/10/2025 1:00 PM EST us Aaron Villaseñor MD LAB BLOOD ORDERABLES Final Resul t Performing Organization Address [facility] Co de Phone Number [facility] [address] [place] [phone] * (ABNORMAL) Lipid Panel, Standard (03/10/2025 11:49 AM EST) Triglycerides 71 <150 mg/dL [facility] Comment:Desirable Triglyceri de: less than 150 mg/dLBorderline High Triglyceride 150-199 mg/dLHigh Triglyceride: 200-499 mg/dLVery High Triglyceride: greater than or equal to 5OO mg/dL Cholesterol 117 <200 mg/dL [facility] Comment:Desirable Cholestero l: less than 200 mg/dLBorderline High Cholesterol: 200-239 mg/dLHigh Cholesterol: greater than 239 mg/dL LDL Cholesterol Calculated 66 <100 mg/dL [facility] Comment:Desirable LDL: less than 100 mg/dLNear Optimal/Above Optimal LDL: 110- 129 mg/dLBorderline High LDL: 130-159 mg/dLHigh LDL: 160-189 mg/dLVery High LDL: greater than or equal to 190 mg/dL HDL Cholesterol 37(L) >40 mg/dL [facility] Comment:Desirable HDL: great er than 40 mg/dL Note: This HDL assay may give artificially low results in patients with liver disease. 03/10/2025 11:4 9 AM EST 03/10/2025 1:00 PM EST us Aaron Villaseñor MD LAB BLOOD ORDERABLES Final Resul t Performing Organization Address [facility] Co de Phone Number [facility] [address] [place] [phone] * (ABNORMAL) Basic Metabolic Panel (03/10/2025 11:49 AM EST) Sodium 144 135 - 145 mmol/L [facility] Potassium 4.0 3.3 - 5.1 mmol/L [facility] Chloride 110(H) 96 - 108 mmol/L [facility] Carbon Dioxide 28 22 - 29 mmol/L [facility] Anion Gap 10(L) 12 - 20 [facility] Urea Nitrogen (BUN) 16 9 - 16 mg/dL [facility] Creatinine, Serum 0.68 0.5 - 1.4 mg/dL [facility] Estimated Glomerular Filt Rate >60 [facility] Comment:Chronic Kidney Disea se: Estimated GFR < 60 mL/min/1.86v7Lkuosf Kidney Disease: Estimated GFR < 15 mL/min/1.73m2 Glucose 99 60 - 115 mg/dL [facility] Calcium 10.9(H) 8.4 - 10.2 mg/dL [facility] 03/10/2025 11:4 9 AM EST 03/10/2025 1:00 PM EST us Aaron Villaseñor MD LAB BLOOD ORDERABLES Final Resul t Performing Organization Address City/State/[facility] Co de Phone Number [facility] [address] [place] [phone] * BI Mammogram Screening Tomosynthesis Bilateral (02/07/2025 12:09 PM EDT) Anatomical Region Laterality Modality Breast Bilateral Mammography 02/07/2025 12:0 9 PM EDT Narrative 02/14/2025 10:00 AM EDT [facility] [address] [place] [address] Mammography Report Signed with Michelle Patient: Alina Pak MR#: [id number] : 1965 Acct:[id number] Age/Sex: 59 / F ADM Date: 02/07/25 Loc: HO.MAMMO Attending Dr: Aaron Villaseñor MD Ordering Physician: Aaron Villaseñor MD Results: 0Incomplet e- Need Additional Imaging Evaluation Date of Service: 02/07/25 Follow Up: Additional Imagi ng Procedure(s): MM tomosynthesis screening BI Accession Number(s): [id number] cc: Name,Aaron FIGUEROA Reason For Exam: screening [...] signed by Bee Henderson DO in OV> 02/16/25 0911 Addendum Cosigned By: [...] signed by Bee Henderson DO in OV> 02/14/2557 DD/ 08 TD/TT: 02/07/251222 Lead Clinical Research Coordinator: Procedure Note Doncharointerpreter, Image - 02/16/2025 [facility] [address] [place], [place] [address] Mammography Report Signed with Addenda Patient: Phyllis Pak#: [id number] : 1965Acct:[id number] Age/Sex: 59 / FADM Date: 02/07/25 Loc: HO.MAMMO Attending Dr: Aaron Villaseñor MD Ordering Physician: Aaron Villaseñoresults: 0Incomplet e- Need Additional Imaging Evaluation Date of Service: 02/07/25Follow Up: Additional Imagi ng Procedure(s): MM tomosynthesis screening BI Accession Number(s): [id number] cc: Aaron Villaseñor MD Reason For Exam: [...] 09:11 AM EDT Addendum Dictated By: Bee Hednerson DO Addendum Signed By: <Electronically signed by DO Anabel in OV> 02/16/25910 Addendum Cosigned By: DD/ [...] 02/14/25 0957 DD/ 1209 TD/TT: 02/07/25 1223 Lead Clinical Research Coordinator: Aaron NGUYEN BI PROCEDURES Edited Result - Final * OCT, Retina - OU - Both Eyes (02/02/2025 3:30 PM EDT) Mary Alice Shi, OD - 02/08/2025 3:22 PM EDT Images [...] time. Will monitor here in 6 months. us Mary Alice Jane OD OPHTH TOMOGRAPHY Edited Resul t - Final * (ABNORMAL) Albumin, Random Urine W/Creatinine (11/21/2024 9:01 AM EDT) Creatinine, Urine 116.34 mg/dL [facility] Microalbumin Urine 125.0 mg/L [facility] Microalbum Creatinine Ratio Ur 107.4(H) <30 ug/mg cr [facility] Comment:Albumin/Creatinine R atio Reference Ranges: Normal: < 30 ug/mg creatinine Microalbuminuria: 30 - 300 ug/mg creatinineClinical Albuminuria: > 300 ug/mg creatinine 11/21/2024 9:01 AM EDT 11/21/2024 11:26 AM EDT us Aaron Villaseñor MD LAB URINE ORDERABLES Final Resul t [facility] [address] [place] [phone] from Last 3 Months or Most Recently Relevant to Health Maintenance Additional Health Concerns Active Problems Noted Date Diagnosed Date Help patients manage their type 2 diabetes 03/16 Weekly blood pressure task 03/16/2025 Help patients manage their type 2 diabetes 03/16 Patient has chronic kidney disease 03/16/2025 Weekly blood pressure task 03/16/2025 Patient has chronic kidney disease 03/16/2025 Weekly blood pressure task 04/03/2025 Weekly blood pressure task 04/03/2025 Patient has chronic kidney disease 04/03/2025 Patient has chronic kidney disease 04/03/[address] [place] [address] [place] [address] 2 Care Teams Reactor Operator Relationship Specialty Start Date End Date Name, MD Aaron [address] [place] [address] PCP - General Internal Medicine 09/14/24 Alison Gary, PharmD [address] [place] [phone] Pharmacist Pharmacy 10/28/24
== END 2025-04-20 08:43 | disposition home or self-care (01) ==
LOC: HO.HGS 08:16
PROVIDERS: PCP Internal Medicine Geriatric Medicine; Visit Provider Surgery
DX: R92.1 Mammographic calcification found on diagnostic imaging of breast (principal)
CPT/HCPCS: 99203

== ENCOUNTER 2025-04-20 08:50 | Outpatient (REF) | payer OTHER, SELFPAY ==
--- NOTE | ~2025-04-20 | MM_ITS ---
EXAMINATION: STEREOTACTICALLY-GUIDED RIGHT BREAST BIOPSY CLINICAL INFORMATION: Grouped calcifications upper central right breast middle to posterior depth. COMPARISON: [facility] on PACS. INFORMED CONSENT: After the details of the procedure, as well as the risks (including, but not limited to, bleeding, hematoma formation, and infection), benefits and alternatives (including doing nothing, short-interval follow up, and surgery) to the procedure were explained to the patient in detail and all of her questions were answered, informed written consent was obtained. TECHNIQUE/FINDINGS: A timeout was performed confirming patients name date of side and site of procedure. The lesion intended for biopsy was identified stereotactically and targeted. The skin of the right breast was then cleansed with sterile solution. Using stereotactic guidance, aseptic technique, and 1% lidocaine with and without epinephrine for local anesthesia, a total of 12 cores were obtained through the targeted area with a 9-gauge vacuum-assisted Eviva core biopsy device from a superior approach. Specimen radiography reveals the targeted calcifications in the sampled tissue. At the completion of tissue sampling, a single top hat-shaped metallic clip was deposited at the biopsy site. Adequate sampling was achieved. The postprocedure 2-view direct digital mammogram reveals satisfactory positioning of the biopsy clip. The patient tolerated the procedure well and, after assuring adequate hemostasis, was discharged in good condition after reviewing postbiopsy breast care instructions. Final pathology results are pending. MM/MM stereotactic biopsy RT IMPRESSION: 1. Uncomplicated stereotactically-guided core biopsy of the right breast. The 2-view direct digital postprocedure mammogram reveals satisfactory positioning of the biopsy clip. 2. Final pathology results are pending. A separate report with final recommendations will be issued once these results are made available. Electronically signed by: Bee Henderson DO 04/20/2025 10:39 AM JHON
[2025-04-20] MEDS: Lidocaine HCl 1 % 20 ML VIAL 4 ML SUBCUT (10:21)
[2025-04-20] MEDS: Lidocaine HCl 1%/Epi 1:100,000 10 ML VIAL 19 ML SUBCUT (10:23)
== END 2025-04-20 08:51 ==
LOC: HO.MAMMO 08:50
PROVIDERS: PCP Internal Medicine Geriatric Medicine; Visit Provider Surgery
DX: R92.1 Mammographic calcification found on diagnostic imaging of breast (principal)
CPT/HCPCS: 19081; 88305; 88341; 88342; A4648; J2003; J2004

== ENCOUNTER → 2025-04-20 09:00 | Outpatient (BNV) | payer OTHER, SELFPAY | PROVIDERS: PCP Internal Medicine Geriatric Medicine; Visit Provider Internal Medicine | DX: R92.1 Mammographic calcification found on diagnostic imaging of breast (principal) | CPT/HCPCS: 19081 ==